=== PATIENT | female | born 1940 | race Caucasian/White ===

== ENCOUNTER 2017-07-13 07:51 | Day surgery (SDC) | payer OTHER, BC ==
--- OUTSIDE RECORDS SUMMARY | 2017-07-13 07:53 | XMS REPORT | Clinical Summary ---
:1940 Author Organization [facility] Address [address] [place] [address] Care Team Providers Name Role Phone Adam Gallegos MD Primary Care Provider Allergies No Known Allergies Current Medications Prescription Sig. Disp. Refills Start Date End Date Status liothyronine Take 5 mcg by Active (CYTOMEL) 5 MCG mouth tablet nightly. lisinopril-hydrochl Take 1 tablet 12/22/2015 Active orothiazide by mouth (MAURICE GEORGEOREIZABEL daily. C) 20-12.5 mg per tablet gabapentin Take 1 60 capsule 11 08/17/2016 08/17/2017 Active (NEURONTIN) 300 mg capsule (300 capsule mg total) by mouth 2 (two) times a day. acetaminophen-codei TAKE 1 TO 2 50 tablet 0 09/08/2016 10/08/2016 ne (TYLENOL WITH TABLETS BY CODEINE #3) 300-30 MOUTH EVERY 4 mg per tablet HOURS NEEDED FOR PAIN acetaminophen-codei TAKE 1 TO 2 50 tablet 0 12/28/2016 01/04/2017 Discontinued ne (TYLENOL WITH TABLETS EVERY CODEINE #3) 300-30 4 HOURS mg per tablet NEEDED FOR PAIN acetaminophen-codei TAKE 1 TO 2 100 tablet 0 01/04/2017 03/05/2017 ne (TYLENOL WITH TABLETS EVERY CODEINE #3) 300-30 4 HOURS mg per tablet NEEDED FOR PAIN Active Problems Problem Noted Date Lumbar stenosis with neurogenic claudication 02/09/2016 Lumbar spondylosis 01/06/2016 Diabetes mellitus Encounters Date Type Specialty Care Team Description 01/04/2017 Refill Neurosurgery Darren Wilson MD 12/27/2016 Refill Neurosurgery Darren Wilson MD 09/05/2016 Refill Neurosurgery Darren Wilson MD 08/17/2016 Hospital Encounter Radiology Darren Wilson MD 08/17/2016 Office Visit Neurosurgery Darren Wilson MD Status post lumbar spinal fusion (Primary Dx) 08/17/2016 Ancillary Orders Radiology Darren Wilson MD after 07/12/2016 Social History Tobacco Use Types Packs/Day Years Used Date Former Smoker 1 30 Quit: 2000 Alcohol Use Drinks/Week oz/Week Comments Yes 1 Glasses of wine 0.6 1/day Sex Assigned at Date Recorded Not on file Last Filed Vital Signs Not on file Plan of Treatment Health Maintenance Due Date Last Done Comments FOOT EXAM 1950 OPHTHALMOLOGY EXAM 1950 URINE MICROALBUMIN 1950 SHINGRIX VACCINE (#1) 1990 ZOSTER VACCINE 2000 PNEUMOCOCCAL POLYSACCHARIDE VACCINE AGE 65 AND OVER 2005 PNEUMOCOCCAL-13 2005 INFLUENZA VACCINE 10/05/2017 Implants Implanted Type Area Forming Machine Tender Device Expiration Model / Identifier Date Serial / Lot Maxcess Kit Accessories N/A: N/A 10/05/2017 [id number] / Implanted: Qty: 1 on 01/06/2016 by Darren Wilson MD / [id number] 15 Degree Cage Accessories N/A: N/A 01/06/2016 [id number] / Implanted: Qty: 1 on 01/06/2016 by Darren Wilson MD [id number] / [id number] Bone Matriz Osteocel Pro Medium - [id number] - [id number] Human Tissue N/A: N/ A NUVASIVE 06/15/2020 [id number] / Implanted: Qty: 1 on 01/06/2016 by Darren Wilson MD Implants [id number] / [id number] Bone Matriz Osteocel Pro Medium - [id number] - [id number] Human Tissue N/A: N/ A NUVASIVE 06/15/2020 [id number] / Implanted: Qty: 1 on 01/06/2016 by Darren Wilson MD Implants [id number] / [id number] Bone Matriz Osteocel Pro Medium - [id number] - [id number] Human Tissue N/A: N/ A NUVASIVE 06/01/2020 [id number] / Implanted: Qty: 1 on 01/06/2016 by Darren Wilson MD Implants [id number] / [id number] Brady [id number] 4.75 Ccm+ Strt Perc 100mm - [id number] IPM IMPLANT N/A: MEDTRONIC 03/07/2029 [id number] / Implanted: Qty: 2 on 01/06/2016 by Darren Wilson MD DEVICES Spine SOFAMOR DANEK / Lumbar [id number] Nvm5 Tmap Activator & Electrode Kit - [id number] IPM SUPPLIES N/A: N/A NUVASIVE SPINE 10/05/2016 / Implanted: Qty: 1 on 01/06/2016 by Darren Wilson MD PATIENT / NON-BILLABLE [id number] Screw Mas 4.75 Ext Tab Yovana 7.5 X 40 - [id number] Spinal N/A: MEDTRONIC [id number] / Implanted: Qty: 1 on 01/06/2016 by Darren Wilson MD Implants Spine SPINAL AND / Lumbar BIOLOGICS Screw Mas 4.75 Ext Tab Yovana 7.5 X 45 - [id number] Spinal N/A: MEDTRONIC [id number] / Implanted: Qty: 1 on 01/06/2016 by Darren Wilson MD Implants Spine SPINAL AND / Lumbar BIOLOGICS Kit Dil M5 Xlif - [id number] Spinal N/A: N/A NUVASIVE [id number] / Implanted: Qty: 1 on 01/06/2016 by Darren Wilson MD Implants / Implant Coroent Lordtc Xl 10deg 8mm 18mm 50mm - [id number] Spinal N/A: N/A NUVASIVE 01/06/2016 [id number] / Implanted: 01/06/2016 (Quantity not on file) Implants / [id number] Set Screw 4.75 Solera Perc Ti - [id number] Spinal N/A: MEDTRONIC [id number] / Implanted: Qty: 9 on 01/06/2016 by Darren Wilson MD Implants Spine SPINAL AND / Lumbar BIOLOGICS Screw Mas 4.75 Ext Tab Yovana 6.5 X 50 - [id number] Spinal N/A: MEDTRONIC [id number] / Implanted: Qty: 3 on 01/06/2016 by Darren Wilson MD Implants Spine SPINAL AND / Lumbar BIOLOGICS Screw Mas 4.75 Ext Tab Yovana 6.5 X 45 - [id number] Spinal N/A: MEDTRONIC [id number] / Implanted: Qty: 3 on 01/06/2016 by Darren Wilson MD Implants Spine SPINAL AND / Lumbar BIOLOGICS Results XR Spine External Study (08/04/2016 2:48 PM) Specimen Performing Laboratory [facility] [address] [place] [address] Narrative This exam was not acquired at a [facility] facility and has not been interpreted by a [facility] Provider.The exam was imported into our imaging system for comparisons purposes. after 07/12/2016 Insurance Payer Benefit Plan / Group Subscriber ID Type Phone Address MEDICARE MEDICARE PART A AND B xxxxxxxxxx Medicare [place], [place] BCBS BCBS PAR/TRAD PLAN xxxxxxxxxxxx Indemnity [phone] [place] [id number] KIRAN JADE Outside Other Home: [address] [facility] [phone] [address] [place] [address]
[2017-07-13] MEDS ORDERED: Ringers Lactate 1,000 ML IV ONE (08:14)
[2017-07-13] MEDS ORDERED: LIDOCAINE 1% MPF 5 ML VIAL ONE (09:34)
[2017-07-13] MEDS ORDERED: PROPOFOL 200 MG/20 ML VIAL IV ONE ×2 (09:34→10:40)
--- NOTE | 2017-07-13 10:20 | ENDO RPT ---
[address], [address] COLONOSCOPY PROCEDURE REPORT EXAM DATE: 07/13/2017 PATIENT NAME: Darlene Thornton MR #: [id number] BIRTHDATE: 1940 ATTENDING: Antoine Devlin DR STATUS: outpatient MACHINE ASSEMBLER SUPERVISOR: Sherly Mccloud RN and Emeka Vogt INDICATIONS: The patient is a 77 yr old Female here for a colonoscopy due to colon cancer screening PROCEDURE PERFORMED: Colonoscopy with ablation MEDICATIONS: Per Anesthesia. ESTIMATED BLOOD LOSS: None CONSENT: The patient understands the risks and benefits of the procedure and understands that these risks include, but are not limited to: sedation, allergic reaction, infection, perforation and/or bleeding. Alternative means of evaluation and treatment include, among others: physical exam, x-rays, and/or surgical intervention. The patient elects to proceed with this endoscopic procedure. DESCRIPTION OF PROCEDURE: During intra-op preparation period all mechanical medical equipment was checked for proper function. Hand hygiene and appropriate measures for infection prevention was taken. Procedure, possible complications, alternatives including, but not limited to possibility of bleeding, perforation, tear, infection, sepsis, need for surgery, need for blood transfusion, were explained to the patient. After the risks, benefits and alternatives of the procedure were thoroughly explained, Informed consent was verified, confirmed and timeout was successfully executed by the treatment team. The patient was placed in the left lateral position. A digital rectal exam was performed and revealed internal hemorrhoids, A digital rectal exam was performed and revealed external hemorrhoids, and A digital rectal exam was performed and revealed several skin tags. After appropriate level of anesthesia, the scope was passed. The [id number] ([id number]) endoscope was introduced through the anus and advanced to the cecum, which was identified by the ileocecal valve. The quality of the prep was fair. The instrument was then slowly withdrawn as the colon was fully examined. Scope withdrawal time was 13 minutes. 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 Argon plasma coagulation was applied to the sites. With complete hemostasis achieved with good treatment effect. Mild diverticulosis was noted in the right colon and sigmoid colon. No bleeding was noted from the diverticulosis. Retroflexed views revealed no abnormalities. The scope was then completely withdrawn from the patient and the procedure terminated. ADVERSE EVENTS: There were no complications. IMPRESSIONS: 1. 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 Mild diverticulosis was noted in the right colon and sigmoid colon RECOMMENDATIONS: 1. avoid NSAIDS for 2 weeks 2. low fiber / diverticular diet 3. hemorrhoidal hygiene 4. follow-up: office 2 week(s) RECALL: Return in 5 year(s) for Colonoscopy. Antoine Devlin DR eSigned: Antoine Devlin DR 07/13/2017 10:20 AM cc: CPT CODES: ICD9 CODES: PATIENT NAME: AlenataliiaDarlene MR#: [id number]
== END 2017-07-13 11:20 | disposition home or self-care (01) ==
LOC: OR 07:51
PROVIDERS: ATTEND Surgery
PROC: 0W3P8ZZ Control Bleeding in Gastrointestinal Tract, Via Natural or Artificial Opening Endoscopic (ICD-10-PCS; principal; 2017-07-13 09:15)
DX: Z12.11 Encounter for screening for malignant neoplasm of colon (principal); Q27.33 Arteriovenous malformation of digestive system vessel; K57.30 Diverticulosis of large intestine without perforation or abscess without bleeding; K64.8 Other hemorrhoids; E03.9 Hypothyroidism, unspecified; I10 Essential (primary) hypertension; Z82.49 Family history of ischemic heart disease and other diseases of the circulatory system

== ENCOUNTER 2018-03-03 15:40 | Emergency (ER) | payer OTHER, BC ==
--- OUTSIDE RECORDS SUMMARY | 2018-03-03 15:44 | XMS REPORT | Clinical Summary ---
:1940 Author Organization [facility] Address [address] [place] [address] Care Team Providers Name Role Phone Adam Gallegos MD Primary Care Provider Allergies No Known Allergies Medications Medication Sig Dispensed Refills Start Date End Date Status liothyronine Take 5 mcg by 0 Active (CYTOMEL) 5 MCG mouth nightly. tablet lisinopril-hydrochlor Take 1 tablet 0 12/22/2015 Active othiazide by mouth daily. (PRINZIDE,ZESTORETIC) 20-12.5 mg per tablet methocarbamol TK 1 T PO HS 0 09/02/2017 Active (ROBAXIN) 500 MG PRN tablet acetaminophen-codeine TAKE 1 TO 2 100 tablet 0 02/23/2018 03/25/2018 Active (TYLENOL WITH CODEINE TABLETS BY #3) 300-30 mg per MOUTH EVERY 4 tablet HOURS NEEDED gabapentin Take 1 capsule 60 capsule 11 08/17/2016 08/17/2017 (NEURONTIN) 300 mg (300 mg total) capsule by mouth 2 (two) times a day. acetaminophen-codeine TAKE 1 TO 2 100 tablet 0 01/04/2017 03/05/2017 (TYLENOL WITH CODEINE TABLETS EVERY 4 #3) 300-30 mg per HOURS NEEDED tablet FOR PAIN Active Problems Problem Noted Date Lumbar stenosis with neurogenic claudication 02/09/2016 Lumbar spondylosis 01/06/2016 Diabetes mellitus Encounters Date Type Specialty Care Team Description 02/21/2018 Refill Neurosurgery Darren Wilson MD 10/07/2017 Hospital Encounter Radiology Darren Wilson MD 10/07/2017 Hospital Encounter Radiology Darren Wilson MD 10/07/2017 Hospital Encounter Radiology Darren Wilson MD 10/07/2017 Office Visit Neurosurgery Darren Wilson, Status post lumbar spinal MD fusion (Primary Dx) 10/07/2017 Orders Only Neurosurgery Darren Wilson, Acquired spondylolisthesis (Primary Dx) after 03/02/2017 Social History Tobacco Use Types Packs/Day Years Used Date Former Smoker 04 05 Quit: 2000 Smokeless Tobacco: Never Used Alcohol Use Drinks/Week oz/Week Comments Yes 1 Glasses of wine 0.6 1/day Sex Assigned at Date Recorded Not on file Job Start Date Occupation Industry Not on file Not on file Not on file Travel History Travel Start Travel End No recent travel history available. Last Filed Vital Signs Not on file Plan of Treatment Health Maintenance Due Date Last Done Comments DIABETIC RETINAL EYE EXAM 1940 DIABETIC FOOT EXAM 1950 URINE MICROALBUMIN 1950 SHINGLES VACCINES (1 of 2) 1990 PNEUMOCOCCAL POLYSACCHARIDE VACCINE AGE 65 AND OVER 2005 PNEUMOCOCCAL-13 2005 INFLUENZA VACCINE 10/05/2017 Implants Implanted Type Area Superintendent Operations Division Device Shelf Model / Identifier Expiration Serial / Lot Date Maxcess Kit Accessories N/A: N/A 10/05/2017 [id number] / Implanted: Qty: 1 on 01/06/2016 by Darren Wilson MD / [id number] 15 Degree Cage Accessories N/A: N/A 01/06/2016 [id number] / Implanted: Qty: 1 on 01/06/2016 by Darren Wilson MD [id number] / [id number] Bone Matriz Osteocel Pro Medium - [id number] - [id number] Human Tissue N/A: N/ A NUVASIVE 06/15/2020 [id number] / Implanted: Qty: 1 on 01/06/2016 by Darren Wilson MD Implants [id number] / [id number] Bone Matriz Osteocel Pro Medium - [id number] - [id number] Human Tissue N/A: N/ A NUVASIVE 06/15/2020 [id number] / Implanted: Qty: 1 on 01/06/2016 by Darren Wilson MD Implants [id number] / [id number] Bone Matriz Osteocel Pro Medium - [id number] - [id number] Human Tissue N/A: N/ A NUVASIVE 06/01/2020 [id number] / Implanted: Qty: 1 on 01/06/2016 by Darren Wilson MD Implants [id number] / [id number] Brady [id number] 4.75 Ccm+ Strt Perc 100mm - [id number] IMPLANT N/A: MEDTRONIC 03/07/2029 [id number] / Implanted: Qty: 2 on 01/06/2016 by Darren Wilson MD DEVICES Spine SOFAMOR DANEK / Lumbar [id number] Nvm5 Tmap Activator & Electrode Kit - [id number] IPM SUPPLIES N/A: N/A NUVASIVE SPINE 10/05/2016 / Implanted: Qty: 1 on 01/06/2016 by Darren Wilson MD PATIENT / NON-BILLABLE [id number] Screw Mas 4.75 Ext Tab Yovana 7.5 X 40 - [id number] Spinal N/A: MEDTRONIC [id number] / Implanted: Qty: 1 on 01/06/2016 by Darren Wilson MD Implants Spine SPINAL AND / Lumbar BIOLOGICS Screw Mas 4.75 Ext Tab Yovana 7.5 X 45 - [id number] Spinal N/A: MEDTRONIC [id number] / Implanted: Qty: 1 on 01/06/2016 by Darren Wilson MD Implants Spine SPINAL AND / Lumbar BIOLOGICS Kit Dil M5 Xlif - [id number] Spinal N/A: N/A NUVASIVE / Implanted: Qty: 1 on 01/06/2016 by Darren Wilson MD Implants / Implant Coroent Lordtc Xl 10deg 8mm 18mm 50mm - [id number] Spinal N/A: N/A NUVASIVE 01/06/2016 [id number] / Implanted: 01/06/2016 (Quantity not on file) Implants / [id number] Set Screw 4.75 Solera Perc Ti - [id number] Spinal N/A: MEDTRONIC [id number] / Implanted: Qty: 9 on 01/06/2016 by Darren Wislon MD Implants Spine SPINAL AND / Lumbar BIOLOGICS Screw Mas 4.75 Ext Tab Yovana 6.5 X 50 - [id number] Spinal N/A: MEDTRONIC [id number] / Implanted: Qty: 3 on 01/06/2016 by Darren Wilson MD Implants Spine SPINAL AND / Lumbar BIOLOGICS Screw Mas 4.75 Ext Tab Yovana 6.5 X 45 - [id number] Spinal N/A: MEDTRONIC [id number] / Implanted: Qty: 3 on 01/06/2016 by Darren Wilson MD Implants Spine SPINAL AND / Lumbar BIOLOGICS Procedures Procedure Name Priority Date/Time Associated Diagnosis Comments XR LOWER EXTREMITY Routine 09/30/2017 11:15 AM Results for this EXTERNAL STUDY CDT procedure are in the results section. XR LOWER EXTREMITY Routine 09/30/2017 11:13 AM Results for this EXTERNAL STUDY CDT procedure are in the results section. XR SPINE EXTERNAL Routine 09/30/2017 11:08 AM Results for this STUDY CDT procedure are in the results section. after 03/02/2017 Results XR Lower Extremity External Study (09/30/2017 11:15 AM CDT)Only the most recent of2 resultswithin the time period is included. Narrative Performed At This exam was not acquired at a [facility] facility and has not been [facility] interpreted by a [facility] Provider.The exam was imported into our imaging system for comparisons purposes. Performing Organization Address [facility] Phone Number [facility] [address] [place] [address] XR Spine External Study (09/30/2017 11:08 AM CDT) Narrative Performed At This exam was not acquired at a [facility] facility and has not been [facility] interpreted by a [facility] Provider.The exam was imported into our imaging system for comparisons purposes. Performing Organization Address [facility] Phone Number [facility] [address] [place] [address] after 03/02/2017 Insurance Payer Benefit Plan / Group Subscriber ID Type Phone Address MEDICARE MEDICARE PART A AND B xxxxxxxxxx Medicare [place], [place] BCBS BCBS PAR/TRAD PLAN xxxxxxxxxxxx Indemnity KIRAN JADE Outside Other 03/07/1900 [phone] [facility] [address] (Home) [place] [address] Advance Directives Patient has advance care planning documents on file. For more information, please contact:Rolando Romano[address] [facility] [place] [address]
--- OUTSIDE RECORDS SUMMARY | 2018-03-03 15:44 | XMS REPORT ---
:1940 [facility] Address [address] [place] [address] Dr. Fishman [address] [place] [address] Care Team Providers Name Role Phone Unavailable Unavailable Unavailable Problems This patient has no known problems. Allergies, Adverse Reactions, Alerts This patient has no known allergies or adverse reactions. Medications This patient has no known medications.
[2018-03-03 18:23] LABS: Absolute Lymphocytes (CBC) 1.9 K/uL (0.7-4.9); Absolute Monocytes 1.5 K/uL (0.1-1.3); Absolute Neutrophil 5.3 K/uL (1.8-8.0); Basophils % 0.8 % (0-1.3); Eosinophils % 2.4 % (0-4.4); Hematocrit 37.8 % (36.0-45.0); Lymphocytes % 21.3 % (15.3-44.8); MPV 8.4 fL (7.6-11.3); Monocytes % 16.2 % (3.3-12.3); RBC Red Blood Cell Count 4.06 M/uL (3.86-4.86)
[2018-03-03 18:35] LABS: Urine Blood NEGATIVE (NEG); Urine Glucose NEGATIVE (NEG); Urine Protein NEGATIVE (NEG); Urine pH 6.5 (5.0-7.0)
--- NOTE | 2018-03-03 18:50 | RAD REPORT ---
EXAM DESCRIPTION: CT - Stone Protocol - 03/03/2018 6:18 pm CLINICAL HISTORY: Abdominal pain. Lower abdominal pain. Urinary frequency COMPARISON: None. TECHNIQUE: Computed axial tomography of the abdomen pelvis was obtained without oral or IV contrast. Lack of IV and oral contrast limits evaluation of solid organs, bowel, and vessels. Coronal reformat kellie images were obtained and reviewed. All CT scans are performed using dose optimization technique as appropriate and may include automated exposure control or mA/KV adjustment according to patient size. FINDINGS: A renal calculus is not seen. An ureteral calculus is not noted. A bladder calculus is not present. The liver, spleen, pancreas and adrenals appear grossly normal There is no evidence of diverticulitis. A cystocele seen. Mild to moderate arterial atherosclerosis Postsurgical changes involve the spine . Small umbilical hernia contains fat IMPRESSION: Negative for a genitourinary calculus
[2018-03-03 19:01] LABS: Blood Morphology Comment NOT SEEN (NOT SEEN); Platelet Estimate ADEQ; Urine White Blood Cell Casts OK
[2018-03-03] MEDS ORDERED: ONDANSETRON 4 MG/2 ML VIAL ONE (19:08)
[2018-03-03] MEDS ORDERED: NA CHLORIDE 0.9% 1,000 ML ONE (19:08)
[2018-03-03] MEDS ORDERED: KETOROLAC 30 MG/ML INJ ONE (19:08)
[2018-03-03 19:47] LABS: ALT/SGPT 39 U/L (12-78); AST/SGOT 20 U/L (15-37); Albumin 3.7 g/dL (3.4-5.0); Alkaline Phosphatase 114 U/L (45-117); BUN Blood Urea Nitrogen 18 mg/dL (7-18); Bicarbonate 30 mmol/L (21-32); Bilirubin Direct < 0.1 mg/dL (0-0.2); Bilirubin Total 0.3 mg/dL (0.2-1.0); Glucose Level 115 mg/dL (74-106); Lipase 235 U/L (73-393); Potassium 4.1 mmol/L (3.5-5.1); Protein, Total 7.1 g/dL (6.4-8.2); Sodium Level 136 mmol/L (136-145)
--- NOTE | 2018-03-03 20:18 | ER ---
Nurse's Notes [facility] Name: Darlene Thornton Age: 77 yrs Sex: Female : 1940 Arrival Date: 03/03/2018 Time: 15:46 Bed 14 Private MD: Adam Gallegos Diagnosis: Low back pain Presentation: 03/03 16:02 Presenting complaint: Patient states: Low back pain that started yesterday with chills. aj Transition of care: patient was not received from another setting of care. Onset of symptoms was March 02, 2018. Risk Assessment: Do you want to hurt yourself or someone else? Patient reports no desire to harm self or others. Initial Sepsis Screen: Does the patient meet any 2 criteria? No. Patient's initial sepsis screen is negative. Does the patient have a suspected source of infection? No. Patient's initial sepsis screen is negative. Care prior to arrival: None. 16:02 Method Of Arrival: Ambulatory aj 16:02 Acuity: AISHWARYA 3 aj Triage Assessment: 16:04 General: Appears in no apparent distress. comfortable, Behavior is calm, cooperative, aj appropriate for age. Pain: Complains of pain in low back area. Neuro: Level of Consciousness is awake, alert, obeys commands, Oriented to person, place, time, situation, Appropriate for age. Respiratory: Airway is patent Respiratory effort is even, unlabored, Respiratory pattern is regular, symmetrical. Derm: Skin is intact, is healthy with good turgor, Skin is pink, warm \\T\\ dry. normal. Musculoskeletal: Circulation, motion, and sensation intact. Range of motion: intact in all extremities. Historical: - Allergies: 16:04 No Known Allergies; aj - Home Meds: 16:04 Lisinopril Oral [Active]; "2 thyroid meds" [Active]; Tylenol #3 Oral [Active]; aj Amoxicillin Oral [Active]; - PMHx: 16:04 Hypertension; Hypothyroidism; aj - PSHx: 16:04 Hysterectomy; Appendectomy; bladder prolaspe; vericose veins; aj - Immunization history:: Adult Immunizations up to date. - Social history:: Smoking status: Patient/guardian denies using tobacco. - Ebola Screening: : Patient negative for fever greater than or equal to 101.5 degrees Fahrenheit, and additional compatible Ebola Virus Disease symptoms Patient denies exposure to infectious person Patient denies travel to an Ebola-affected area in the 21 days before illness onset No symptoms or risks identified at this time. - Family history:: not pertinent. Screenin:25 Abuse screen: Denies threats or abuse. Denies injuries from another. Nutritional ph screening: No deficits noted. Tuberculosis screening: No symptoms or risk factors identified. Fall Risk None identified. Assessment: 17:24 General: Appears in no apparent distress. comfortable, slender, well groomed, Behavior ph is calm, cooperative, appropriate for age, Reports chills for. Pain: Complains of pain in low back area Pain radiates to right hip. Neuro: Level of Consciousness is awake, alert, obeys commands, Oriented to person, place, time, situation. Cardiovascular: Capillary refill < 3 seconds in bilateral fingers Patient's skin is warm and dry. Respiratory: Airway is patent Respiratory effort is even, unlabored. GI: No signs and/or symptoms were reported involving the gastrointestinal system. : Reports pain in bilateral in lower back. Derm: Skin is intact, is healthy with good turgor, Skin is pink, warm \\T\\ dry. Musculoskeletal: Circulation, motion, and sensation intact. Range of motion: intact in all extremities. 18:53 Reassessment: Patient appears in no apparent distress at this time. Patient and/or ph family updated on plan of care and expected duration. Pain level reassessed. Patient is alert, oriented x 3, equal unlabored respirations, skin warm/dry/pink. Pt resting quietly, awaiting lab and CT results. 19:20 Reassessment: Patient appears in no apparent distress at this time. Patient and/or jb4 family updated on plan of care and expected duration. Pain level reassessed. Patient is alert, oriented x 3, equal unlabored respirations, skin warm/dry/pink. Cardiovascular: Patient's skin is warm and dry. Respiratory: Airway is patent Respiratory effort is even, unlabored, Respiratory pattern is regular, symmetrical. 20:32 Reassessment: Patient appears in no apparent distress at this time. Patient and/or jb4 family updated on plan of care and expected duration. Pain level reassessed. Patient is alert, oriented x 3, equal unlabored respirations, skin warm/dry/pink. Discussed D/c, F/u with pt, denies questions or cocnerns. Vital Signs: 16:04 BP 157 / 73; Pulse 76; Resp 20; Temp 98.3; Pulse Ox 100% on R/A; Weight 74.84 kg; aj Height 5 ft. 6 in. (167.64 cm); 17:45 BP 174 / 75; Pulse 68; Resp 18; Pulse Ox 98% on R/A; ph 18:53 BP 169 / 78; Pulse 71; Resp 18; Pulse Ox 99% on R/A; ph 19:31 BP 152 / 67; Pulse 69; Resp 16; Pulse Ox 100% on R/A; jb4 20:00 BP 154 / 67; Pulse 72; Resp 16; Pulse Ox 100% ; jb4 16:04 Body Mass Index 26.63 (74.84 kg, 167.64 cm) ED Course: 15:46 Patient arrived in ED. sb2 15:47 Adam Gallegos MD is Private Physician. sb2 16:03 Triage completed. 16:04 Arm band placed on right wrist. Patient placed in waiting room, Patient notified of wait time. 16:49 Esther Nunez, RN is Primary Nurse. ph 17:11 Angel Bustamante MD is Attending Physician. harley 17:25 Patient has correct armband on for positive identification. Bed in low position. Call ph light in reach. Side rails up X 1. 18:03 Radiology exam delayed due to IV insertion attempt and/or patient not having vm2 appropriate IV at this time. 18:08 Initial lab(s) drawn, by nj, sent to lab. Inserted saline lock: 18 gauge antecubital 5 area, using aseptic technique. Blood collected. 18:09 Urine collected: clean catch specimen, cloudy. 5 18:10 Basic Metabolic Panel Sent. 5 18:10 CBC with Diff Sent. 5 18:10 Creatinine for Radiology Sent. 5 18:10 Hepatic Function Sent. 5 18:10 Lipase Sent. 5 18:10 Urine Culture Sent. [facility] 18:18 CT completed. Patient tolerated procedure well. Patient moved to CT. Patient moved back nv from CT. 18:18 CT Stone Protocol In Process Unspecified. EDMS 18:54 No provider procedures requiring assistance completed. ph 19:37 Jarred Nath PA is PHCP. [facility] 20:17 Adam Gallegos MD is Referral Physician. [facility] 20:30 IV discontinued, intact, bleeding controlled. jb4 Administered Medications: 19:17 Drug: NS 0.9% 1000 ml Route: IV; Rate: 1 bolus; Site: right antecubital; ss 20:35 Follow up: Response: No adverse reaction; IV Status: Completed infusion jb4 19:18 Drug: Zofran 4 mg Route: IVP; Site: right antecubital; ss 20:34 Follow up: Response: No adverse reaction; Nausea is decreased jb4 19:20 Drug: TORadol 30 mg Route: IVP; Site: right antecubital; ss 20:34 Follow up: Response: No adverse reaction; Pain is decreased jb4 Outcome: 20:17 Discharge ordered by . [facility] 20:30 Discharged to home ambulatory. jb4 20:30 Condition: stable 20:30 Discharge instructions given to patient, Instructed on discharge instructions, follow up and referral plans. medication usage, Demonstrated understanding of instructions, follow-up care, medications, Prescriptions given X 2. 20:35 Patient left the ED. jb4 Signatures: Dispatcher [employer] EDMilvia Cuevas, RN Angel Pedersen MD MD cha Mickail, Joel, PA PA Tracy Villalta, Esther Mcneal RN, RN RN ph Bryson, James, RN RN jbLucien Flores Maria Lorena Romero 2 Nelly Muller2
--- NOTE | 2018-03-03 20:18 | EDPHYS ---
Physician Documentation [facility] Name: Darlene Thornton Age: 77 yrs Sex: Female : 1940 Arrival Date: 03/03/2018 Time: 15:46 Bed 14 Private MD: Adam Gallegos ED Physician Angel Bustamante HPI: 03/03 17:54 This 77 yrs old Female presents to ER via Ambulatory with complaints of Back harley Pain. 17:54 The patient presents with pain that is acute, with no known mechanism of injury. The harley symptoms are located in the low back, left mid back and right mid back. Onset: The symptoms/episode began/occurred 2 day(s) ago. The pain does not radiate. Associated signs and symptoms: The patient has no apparent associated signs or symptoms. The problem was sustained from unknown cause. Modifying factors: The patient symptoms are alleviated by nothing, the patient symptoms are aggravated by any movement. Severity of symptoms: At their worst the symptoms were mild, moderate, in the emergency department the symptoms are unchanged. The patient has not experienced similar symptoms in the past. Historical: - Allergies: 16:04 No Known Allergies; aj - Home Meds: 16:04 Lisinopril Oral [Active]; "2 thyroid meds" [Active]; Tylenol #3 Oral [Active]; aj Amoxicillin Oral [Active]; - PMHx: 16:04 Hypertension; Hypothyroidism; aj - PSHx: 16:04 Hysterectomy; Appendectomy; bladder prolaspe; vericose veins; aj - Immunization history:: Adult Immunizations up to date. - Social history:: Smoking status: Patient/guardian denies using tobacco. - Ebola Screening: : Patient negative for fever greater than or equal to 101.5 degrees Fahrenheit, and additional compatible Ebola Virus Disease symptoms Patient denies exposure to infectious person Patient denies travel to an Ebola-affected area in the 21 days before illness onset No symptoms or risks identified at this time. - Family history:: not pertinent. ROS: 17:54 Constitutional: Negative for fever, chills, and weight loss, Eyes: Negative for injury, harley pain, redness, and discharge, ENT: Negative for injury, pain, and discharge, Neck: Negative for injury, pain, and swelling, Cardiovascular: Negative for chest pain, palpitations, and edema, Respiratory: Negative for shortness of breath, cough, wheezing, and pleuritic chest pain, Abdomen/GI: Negative for abdominal pain, nausea, vomiting, diarrhea, and constipation, : Negative for injury, bleeding, discharge, and swelling, MS/Extremity: Negative for injury and deformity, Skin: Negative for injury, rash, and discoloration, Neuro: Negative for headache, weakness, numbness, tingling, and seizure, Psych: Negative for depression, anxiety, suicide ideation, homicidal ideation, and hallucinations, Allergy/Immunology: Negative for hives, rash, and allergies, Endocrine: Negative for neck swelling, polydipsia, polyuria, polyphagia, and marked weight changes, Hematologic/Lymphatic: Negative for swollen nodes, abnormal bleeding, and unusual bruising. 17:54 Back: Positive for decreased range of motion, pain at rest, of the lumbar area. Exam: 17:54 Constitutional: This is a well developed, well nourished patient who is awake, alert, harley and in no acute distress. Head/Face: Normocephalic, atraumatic. Eyes: Pupils equal round and reactive to light, extra-ocular motions intact. Lids and lashes normal. Conjunctiva and sclera are non-icteric and not injected. Cornea within normal limits. Periorbital areas with no swelling, redness, or edema. ENT: Nares patent. No nasal discharge, no septal abnormalities noted. Tympanic membranes are normal and external auditory canals are clear. Oropharynx with no redness, swelling, or masses, exudates, or evidence of obstruction, uvula midline. Mucous membranes moist. Neck: Trachea midline, no thyromegaly or masses palpated, and no cervical lymphadenopathy. Supple, full range of motion without nuchal rigidity, or vertebral point tenderness. No Meningismus. Chest/axilla: Normal chest wall appearance and motion. Nontender with no deformity. No lesions are appreciated. Cardiovascular: Regular rate and rhythm with a normal S1 and S2. No gallops, murmurs, or rubs. Normal PMI, no JVD. No pulse deficits. Respiratory: Lungs have equal breath sounds bilaterally, clear to auscultation and percussion. No rales, rhonchi or wheezes noted. No increased work of breathing, no retractions or nasal flaring. Abdomen/GI: Soft, non-tender, with normal bowel sounds. No distension or tympany. No guarding or rebound. No evidence of tenderness throughout. Female : Normal external genitalia. Skin: Warm, dry with normal turgor. Normal color with no rashes, no lesions, and no evidence of cellulitis. MS/ Extremity: Pulses equal, no cyanosis. Neurovascular intact. Full, normal range of motion. Neuro: Awake and alert, GCS 15, oriented to person, place, time, and situation. Cranial nerves II-XII grossly intact. Motor strength 5/5 in all extremities. Sensory grossly intact. Cerebellar exam normal. Normal gait. Psych: Awake, alert, with orientation to person, place and time. Behavior, mood, and affect are within normal limits. 17:54 Back: pain, that is mild, ROM is painful, normal spinal alignment noted, CVA tenderness, that is mild, vertebral tenderness, is not appreciated, muscle spasm, is appreciated in the left low back, left mid back, right mid back and right low back. Vital Signs: 16:04 BP 157 / 73; Pulse 76; Resp 20; Temp 98.3; Pulse Ox 100% on R/A; Weight 74.84 kg; aj Height 5 ft. 6 in. (167.64 cm); 17:45 BP 174 / 75; Pulse 68; Resp 18; Pulse Ox 98% on R/A; ph 18:53 BP 169 / 78; Pulse 71; Resp 18; Pulse Ox 99% on R/A; ph 19:31 BP 152 / 67; Pulse 69; Resp 16; Pulse Ox 100% on R/A; jb4 20:00 BP 154 / 67; Pulse 72; Resp 16; Pulse Ox 100% ; jb4 16:04 Body Mass Index 26.63 (74.84 kg, 167.64 cm) MDM: 17:12 Patient medically screened. [facility] 17:57 Data reviewed: vital signs, nurses notes, lab test result(s), EKG, radiologic studies, [facility] CT scan. 20:17 Counseling: I had a detailed discussion with the patient and/or guardian regarding: the [facility] historical points, exam findings, and any diagnostic results supporting the discharge/admit diagnosis, lab results, radiology results, the need for outpatient follow up, to return to the emergency department if symptoms worsen or persist or if there are any questions or concerns that arise at home. 03/03 17:52 Order name: Basic Metabolic Panel; Complete Time: 19:49 [facility] 03/03 17:52 Order name: CBC with Diff; Complete Time: 19:05 [facility] 03/03 17:52 Order name: Creatinine for Radiology; Complete Time: 19:45 [facility] 03/03 17:52 Order name: Hepatic Function; Complete Time: 19:49 [facility] 03/03 17:52 Order name: Lipase; Complete Time: 19:49 [facility] 03/03 17:52 Order name: Urine Culture [facility] 03/03 17:52 Order name: IV Saline Lock; Complete Time: 18:10 [facility] 03/03 17:52 Order name: Labs collected and sent; Complete Time: 18:10 [facility] 03/03 17:52 Order name: CT Stone Protocol; Complete Time: 19:05 [facility] 03/03 18:26 Order name: Urine Dipstick--Ancillary (enter results); Complete Time: 18:38 eb 03/03 18:33 Order name: CBC Smear Scan; Complete Time: 19:05 [facility] 03/03 17:52 Order name: Urine Dipstick-Ancillary (obtain specimen); Complete Time: 18:10 [facility] 03/03 18:35 Order name: Labs - recollect needed; Complete Time: 19:20 eb Administered Medications: 19:17 Drug: NS 0.9% 1000 ml Route: IV; Rate: 1 bolus; Site: right antecubital; ss 20:35 Follow up: Response: No adverse reaction; IV Status: Completed infusion jb4 19:18 Drug: Zofran 4 mg Route: IVP; Site: right antecubital; ss 20:34 Follow up: Response: No adverse reaction; Nausea is decreased jb4 19:20 Drug: TORadol 30 mg Route: IVP; Site: right antecubital; ss 20:34 Follow up: Response: No adverse reaction; Pain is decreased jb4 Disposition: 03/03/18 20:17 Discharged to Home. Impression: Low back pain. - Condition is Stable. - Discharge Instructions: Back Pain, Adult, Musculoskeletal Pain. - Prescriptions for Motrin IB 200 mg Oral Tablet - take 2 tablet by ORAL route every 6 hours As needed as needed with food; 30 tablet. Tramadol 50 mg Oral Tablet - take 1 tablet by ORAL route every 8 hours as needed; 20 tablet. - Medication Reconciliation Form, Thank You Letter, Antibiotic Education, Prescription Opioid Use form. - Follow up: Adam Gallegos; When: 2 - 3 days; Reason: Recheck today's complaints, Continuance of care, Re-evaluation by your physician. - Problem is new. - Symptoms have improved. Addendum: 03/07/2018 11:06 Co-signature as Attending Physician, Angel Bustamante MD I agree with the assessment and c carranza plan of care. Signatures: Dispatcher [employer] EDMilvia Cuevas, RN Angel Pedersen MD MD cha Mickail, Joel, PA PA jmm Smirch, Shelby, RN RN ss Good Diaz RN RN jb4 [place]at [facility]ons Corrections: (The following items were deleted from the chart) 03/03 20:35 20:17 03/03/2018 20:17 Discharged to Home. Impression: Low back pain. Condition is jb4 Stable. Discharge Instructions: Back Pain, Adult, Musculoskeletal Pain. Prescriptions for Tylenol-Codeine #3 300-30 mg Oral Tablet - take 2 tablets by ORAL route every 6 hours As needed; 26 tablet, Motrin IB 200 mg Oral Tablet - take 2 tablet by ORAL route every 6 hours As needed as needed with food; 30 tablet. and Forms are Medication Reconciliation Form, Thank You Letter, Antibiotic Education, Prescription Opioid Use. Follow up: Adam Gallegos; When: 2 - 3 days; Reason: Recheck today's complaints, Continuance of care, Re-evaluation by your physician. Problem is new. Symptoms have improved. [facility]
== END 2018-03-03 20:35 | disposition home or self-care (01) ==
LOC: ER 15:40
DX: M54.5 Low back pain (principal); I10 Essential (primary) hypertension; E03.9 Hypothyroidism, unspecified
CPT/HCPCS: 36415; 74176; 76377; 80048; 80076; 81003; 83690; 85025; 87086; 87088; 96361; 96374; 96375; 99284; J2405; J7030

== ENCOUNTER 2021-02-23 11:44 | Emergency (ER) | payer OTHER, BC ==
--- OUTSIDE RECORDS SUMMARY | 2021-02-23 11:48 | XMS REPORT | Continuity of Care Document ---
:1940 Author Organization [facility] t Address [address] [place] [address] [address]. Fish[address] [place] [address] Care Team Providers Name Role Phone OMERO Attending Clinician Unavailable Casie Bolivar Attending Clinician Casie BALBUENA Attending Clinician Unavailable Kimberly Anglin MD Attending Clinician Radiology Attending Clinician Unavailable RADIOLOGY Attending Clinician Unavailable Kimberly ANGLIN Attending Clinician Unavailable Payers Payer Name Policy Type Policy Number Effective Date Expiration Date S ource Problems Condition Condition Condition Status Onset Resolution Last Treating Co mments Source Name Details Category Date Date Treatment Clinician Date No known No known Disease Unive rs active active ity of problems problems [facility] Allergies, Adverse Reactions, Alerts Allergy Allergy Status Severity Reaction(s) Onset Inactive Treating Comm ents Source Name Type Date Date Clinician NO KNOWN Drug Active Univers ALLERGIE Class ity of S [facility] Social History Social Habit Start Date Stop Date Quantity Comments Source Exposure to Not sure [facility] SARS-CoV-2 (event) Medica l Branch Tobacco use and 2020-05-20 2020-05-20 Never used [facility] exposure 00:00:00 00:00:00 [facility] Sex Ass[birth year] [facility] 00:00:00 00:00:00 [facility] Smoking Status Start Date Stop Date Source Never smoker [facility] Medications Ordered Filled Start Stop Current Ordering Indication Dosage Frequency Signature Comments Components Source Medication Medication Date Date Medication? Clinician (SIG) Name Name triamcinolo 2019-03 2020- No 40mg Unive rs ne 04-09 ity of acetonide 23:30: 22:24 [place] (KENALOG) 00 :00 Medical injection Branch 40 mg triamcinolo 2019-03 2020- No 40mg 40 mg, Uni vers ne 04-09 Intra-jaspreet ity of acetonide 23:30: 22:24 [place] ([place]LOG) 00 :00 ONCE, 1 Medical injection dose, Prema Branc h 40 mg 02/07/20 at 1730, Routine triamcinolo 2019-03- No 40mg Unive rs ne 04-09 ity of acetonide 23:30: 22:24 [place] (KENALOG) 00 :00 Medical injection Branch 40 mg triamcinolo 2019-03- No 40mg 40 mg, Uni vers ne 04-09 Intra-jaspreet ity of acetonide 23:30: 22:24 [place], [place] (KENALOG) 00 :00 ONCE, 1 Medical injection dose, Prema Branc h 40 mg 02/07/20 at 1730, Routine lisinopriL 2019-03 Yes 20mg Take 20 mg U nivers 20 mg 2-03 by mouth ity of tablet 22:16: daily. [address] Branch lisinopriL 2019-03 Yes 20mg Take 20 mg U nivers 20 mg 2-03 by mouth ity of tablet 22:16: daily. [address] Branch lisinopriL 2019-03 Yes 20mg Take 20 mg U nivers 20 mg 2-03 by mouth ity of tablet 22:16: daily. [address] Branch lisinopriL 2019-03 Yes 20mg Take 20 mg U nivers 20 mg 2-03 by mouth ity of tablet 22:16: daily. [address] Branch lisinopriL 2019- Yes 20mg Take 20 mg U nivers 20 mg 2-03 by mouth ity of tablet 22:16: daily. [address] lisinopriL 2019-03 Yes 20mg Take 20 mg U nivers 20 mg 2-03 by mouth ity of tablet 22:16: daily. [address] lisinopriL 2019-03 Yes 20mg Take 20 mg U nivers 20 mg 2-03 by mouth ity of tablet 22:16: daily. [address] Branch traMADOL 50 2019-0 Yes [id number] 50mg Take 1 Univers mg tablet 4-02 tablet by ity o f 00:00: mouth [place] [address] every 4 Medical (four) Branch hours as needed for Pain (scale 7-10). traMADOL 50 2019-0 Yes [id number] 50mg Take 1 Univers mg tablet 4-02 tablet by ity o f 00:00: mouth [place] 00 every 4 Medical (four) Branch hours as needed for Pain (scale 7-10). traMADOL 50 2019-0 Yes [id number] 50mg Take 1 Univers mg tablet 4-02 tablet by ity o f 00:00: mouth [place] 00 every 4 Medical (four) Branch hours as needed for Pain (scale 7-10). traMADOL 50 2019-0 Yes [id number] 50mg Take 1 Univers mg tablet 4-02 tablet by ity o f 00:00: mouth [place] 00 every 4 Medical (four) Branch hours as needed for Pain (scale 7-10). traMADOL 50 2019-0 Yes [id number] 50mg Take 1 Univers mg tablet 4-02 tablet by ity o f 00:00: mouth [place] 00 every 4 Medical (four) Branch hours as needed for Pain (scale 7-10). traMADOL 50 2018-0 Yes [id number] 50mg Take 1 Univers mg tablet 4-02 tablet by ity o f 00:00: mouth [place] 00 every 4 Medical (four) Branch hours as needed for Pain (scale 7-10). traMADOL 50 2018-0 Yes [id number] 50mg Take 1 Univers mg tablet 4-02 tablet by ity o f 00:00: mouth [place] 00 every 4 Medical (four) Branch hours as needed for Pain (scale 7-10). traMADOL 50 2019-0 Yes [id number] 50mg Take 1 Univers mg tablet 4-02 tablet by ity o f 00:00: mouth [place] 00 every 4 Medical (four) Branch hours as needed for Pain (scale 7-10). DICLOFENAC 2019-0 Yes [id number] TAKE 1 Univers 75 mg EC 2- [id number] TABLET BY ity o f tablet 00:00: MOUTH [place] 00 TWICE Medical DAILY WITH Branch MEALS DICLOFENAC 2019-0 Yes [id number] TAKE 1 Univers 75 mg EC 2-01 [id number] TABLET BY ity o f tablet 00:00: MOUTH [place] 00 TWICE Medical DAILY WITH Branch MEALS DICLOFENAC 2019-0 Yes [id number] TAKE 1 Univers 75 mg EC 2-01 [id number] TABLET BY ity o f tablet 00:00: MOUTH [place] 00 TWICE Medical DAILY WITH Branch MEALS DICLOFENAC 2019-0 Yes [id number] TAKE 1 Univers 75 mg EC 2- [id number] TABLET BY ity o f tablet 00:00: MOUTH 00 TWICE Medical DAILY WITH Branch MEALS DICLOFENAC 2019-0 Yes [id number] TAKE 1 Univers 75 mg EC 04-07 TABLET BY ity o f tablet 00:00: MOUTH TWICE Medical DAILY WITH Branch MEALS DICLOFENAC 2019-0 Yes [id number] TAKE 1 Univers 75 mg EC 04-07 TABLET BY ity o f tablet 00:00: MOUTH TWICE Medical DAILY WITH Branch MEALS DICLOFENAC 2019-0 Yes [id number] TAKE 1 Univers 75 mg EC 04-07 TABLET BY ity o f tablet 00:00: MOUTH 00 TWICE Medical DAILY WITH Branch MEALS DICLOFENAC 2019-0 Yes [id number] TAKE 1 Univers 75 mg EC 04-07 TABLET BY ity o f tablet 00:00: MOUTH 00 TWICE Medical DAILY WITH Branch MEALS traMADOL 50 2019-0 Yes TK 1 T PO U nivers mg tablet 1-23 Q 6 H PRN ity o f 00:00: P [place] [facility] traMADOL 50 2019-0 Yes TK 1 T PO U nivers mg tablet 1-23 Q 6 H PRN ity o f 00:00: P [place] [facility] traMADOL 50 2019-0 Yes TK 1 T PO U nivers mg tablet 1-23 Q 6 H PRN ity o f 00:00: P [place] [facility] traMADOL 50 2019-0 Yes TK 1 T PO U nivers mg tablet 1-23 Q 6 H PRN ity o f 00:00: P [place] [facility] traMADOL 50 2019-0 Yes TK 1 T PO U nivers mg tablet 1-23 Q 6 H PRN ity o f 00:00: P [place] [facility] traMADOL 50 2019-0 Yes TK 1 T PO U nivers mg tablet 1-23 Q 6 H PRN ity o f 00:00: P [place] [facility] traMADOL 50 2019-0 Yes TK 1 T PO U nivers mg tablet 1-23 Q 6 H PRN ity o f 00:00: P [place] [facility] traMADOL 50 2019-0 Yes TK 1 T PO U nivers mg tablet 1-23 Q 6 H PRN ity o f 00:00: P [place] [facility] amLODIPine 2019-0 Yes TK 1 T PO Un nimo 5 mg tablet -02 QD ity of 00:00: [place] [facility] amLODIPine 20190 Yes TK 1 T PO Un nimo 5 mg tablet 03-08 QD ity of 00:00: [place] [facility] amLODIPine 2019 Yes TK 1 T PO Un nimo 5 mg tablet 03-08 QD ity of 00:00: [place] [facility] amLODIPine 2019 Yes TK 1 T PO Un nimo 5 mg tablet 03-08 QD ity of 00:00: [place] [facility] amLODIPine 2019 Yes TK 1 T PO Un nimo 5 mg tablet 03-08 QD ity of 00:00: [place] [facility] amLODIPine Yes TK 1 T PO Un nimo 5 mg tablet 03-08 QD ity of 00:00: [place] [facility] amLODIPine 2019 Yes TK 1 T PO Un nimo 5 mg tablet 03-08 QD ity of 00:00: [place] [facility] amLODIPine Yes TK 1 T PO Un nimo 5 mg tablet 03-08 QD ity of 00:00: [place] [facility] liothyronin 2017-03 Yes 5ug Take 5 mcg Univers e 5 mcg 1-30 by mouth. ity of tablet 16:18: [address] liothyronin 2017-03 Yes 5ug Take 5 mcg Univers e 5 mcg 1-30 by mouth. ity of tablet 16:18: [address] liothyronin 2017-03 Yes 5ug Take 5 mcg Univers e 5 mcg 1-30 by mouth. ity of tablet 16:18: [address] liothyronin 2017-03 Yes 5ug Take 5 mcg Univers e 5 mcg 1-30 by mouth. ity of tablet 16:18: [address] liothyronin 2017-03 Yes 5ug Take 5 mcg Univers e 5 mcg 1-30 by mouth. ity of tablet 16:18: [address] liothyronin 2017-03 Yes 5ug Take 5 mcg Univers e 5 mcg 1-30 by mouth. ity of tablet 16:18: [address] liothyronin 2017-03 Yes 5ug Take 5 mcg Univers e 5 mcg 1-30 by mouth. ity of tablet 16:18: [address] liothyronin 2017-03 Yes 5ug Take 5 mcg Univers e 5 mcg 1-30 by mouth. ity of tablet 16:18: [place] [address] [facility] methocarbam 0 Yes TK 1 T PO U nivers ol 500 mg 6-29 HS PRN ity of tablet 00:00: [place] [facility] Branch methocarbam Yes TK 1 T PO U nivers ol 500 mg 6-29 HS PRN ity of tablet 00:00: [place] [facility] methocarbam Yes TK 1 T PO U nivers ol 500 mg 6-29 HS PRN ity of tablet 00:00: [place] [facility] Branch methocarbam Yes TK 1 T PO U nivers ol 500 mg 6-29 HS PRN ity of tablet 00:00: [place] [facility] methocarbam Yes TK 1 T PO U nivers ol 500 mg 6-29 HS PRN ity of tablet 00:00: [place] [facility] methocarbam Yes TK 1 T PO U nivers ol 500 mg 6-29 HS PRN ity of tablet 00:00: [place] [facility] methocarbam Yes TK 1 T PO U nivers ol 500 mg 6-29 HS PRN ity of tablet 00:00: [place] [facility] methocarbam Yes TK 1 T PO U nivers ol 500 mg 6-29 HS PRN ity of tablet 00:00: [place] [facility] lisinopril- 2015-03 Yes 1{tbl} Take 1 Un nimo hydrochloro 0-17 tablet by ity of thiazide 00:00: mouth. [place] 20-12.5 mg 00 Medical per tablet Branch lisinopril- 2015-03 Yes 1{tbl} Take 1 Un nimo hydrochloro 0-17 tablet by ity of thiazide 00:00: mouth. [place] 20-12.5 mg 00 Medical per tablet Branch lisinopril- 2015-03 Yes 1{tbl} Take 1 Un nimo hydrochloro 0-17 tablet by ity of thiazide 00:00: mouth. [place] 20-12.5 mg 00 Medical per tablet Branch lisinopril- 2015-03 Yes 1{tbl} Take 1 Un nimo hydrochloro 0-17 tablet by ity of thiazide 00:00: mouth. [place] 20-12.5 mg 00 Medical per tablet Branch lisinopril2015-03 Yes 1{tbl} Take 1 Un nimo hydrochloro 0-17 tablet by ity of thiazide 00:00: mouth. [place] 20-12.5 mg 00 Medical per tablet Branch lisinopril- 2015-03 Yes 1{tbl} Take 1 Un nimo hydrochloro 0-17 tablet by ity of thiazide 00:00: mouth. [place] 20-12.5 mg 00 Medical per tablet Branch lisinopril- 2015-03 Yes 1{tbl} Take 1 Un nimo hydrochloro 0-17 tablet by ity of thiazide 00:00: mouth. [place] 20-12.5 mg 00 Medical per tablet Branch lisinopril- 2015-03 Yes 1{tbl} Take 1 Un nimo hydrochloro 0-17 tablet by ity of thiazide 00:00: mouth. [place] 20-12.5 mg 00 Medical per tablet Branch Vital Signs Vital Name Observation Time Observation Value Comments Source Diastolic blood 2020-05-20 18:53:00 66 mm[Hg] Unive [facility] Heart rate 2020-05-20 18:53:00 65 /min [facility] Systolic blood 2020-05-20 18:53:00 160 mm[Hg] [facility] Body height 2020-05-20 18:49:00 167.6 cm [facility] Body weight 2020-05-20 18:49:00 71.668 kg [facility] BMI 2020-05-20 18:49:00 25.50 kg/m2 [facility] Systolic blood 2020-02-07 22:16:00 152 mm[Hg] [facility] Diastolic blood 2020-02-07 22:16:00 62 mm[Hg] Unive [facility] Heart rate 2020-02-07 22:16:00 76 /min [facility] Body weight 2020-02-07 22:15:00 73.936 kg [facility] BMI 2020-02-07 22:15:00 26.31 kg/m2 [facility] Procedures Procedure Date / Time Performed Performing Clinician Sourc e XR LUMBAR SPINE 5 VW 2020-03-14 20:09:45 [facility] Encounters Start End Encounter Admission Attending Care Care Encounter Source Date/Time Date/Time Type Type Clinicians Facility Department ID 2020-07-18 2020-07-18 Outpatient HAL JAMIL [facility] [id number] [place] 00:00:00 00:00:[address] 2020-06-27 2020-06-27 Outpatient HAL JAMIL [facility] [id number] [place] 00:00:00 00:00:00 084 [facility] i 2020-06-10 2020-06-10 Outpatient HAL JAMIL [facility] [id number] [place] 00:00:00 00:00:[address] 2020-05-20 2020-05-20 Office [place] [facility] [id number] Univers 13:46:27 14:23:02 Visit Adrian [facility] [id number] it y of Surgical [id number] Art[place] as Specialti [phone] Me dical es [address] [place] [address] 2020-05-20 2020-05-20 [facility] [id number] Univers 14:00:00 14:00:00 [facility] [id number] [facility] 2020-05-20 2020-05-20 [facility] [id number] Univers 14:00:00 14:00:00 [facility] 2020-05-13 2020-05-13 Outpatient HAL JAMIL [facility] [id number] [place] 00:00:00 00:00:00 403 Method i 2020-05-13 2020-05-13 Outpatient HAL JAMIL [facility] [id number] [place] 00:00:00 00:00:00 492 [facility] i 2020-05-08 2020-05-08 [facility] [id number] Univers 00:00:00 00:00:00 Adrian [place] [id number] i [place] [phone] Me dical [address] 2020-05-07 2020-05-07 Telephone [facility] [id number] Univers 00:00:00 00:00:00 Polly Harris [facility] [id number] it y of Surgical [id number] [place] Specialti [id number] [place] dical [place] 198 [facility] 2020-03-14 2020-03-14 Hospital Radiology [facility] [id number] Univers 13:49:00 23:59:00 Encounter [place] [id number] ity of [place] 4.2.7.2.686 [id number] 807 Branch 2020-03-14 2020-03-14 Outpatient R RADIOLOGY [facility] [id number] Univers 14:00:00 14:00:00 [id number] ity [facility] 2020-03-14 2020-03-14 Outpatient R RADIOLOGY [facility] [id number] Univers 00:00:00 00:00:00 ity [facility] 2020-02-07 2020-02-07 Office Adrian Balbuena [facility] [id number] Univers 16:00:03 16:27:51 Visit Polly Anglin [facility] [id number] ity of Surgical [id number] Artur as Specialti [phone] [place] dicfranklin es 198 [facility] 2020-02-07 2020-02-07 [facility] [id number] Univers 16:15:00 16:15:00 POLLY ity [facility] 2020-02-07 2020-02-07 [facility] [id number] Univers 16:15:00 16:15:[address] [facility] 2019-03-31 2019-03-31 Refill [place] [facility] [id number] Univers 00:00:00 [facility]00[facility] [id number] it y of Surgical [id number] Artur as Specialti [id number] [place] dical es 198 [facility] Results Test Description Test Test Results Result Source Time Comments Comments XR LUMBAR SPINE 2020-03- Impression: 1. Unive rsity of 5 VW 08 ?[place] [facility] 20:56:17 in the lumbar spine. Bran ch Advanced degenerativechanges at L1-2 and L5-S1.Exam: XR LUMBAR SPINE 5 VW Clinical History: Acute right-sided low back pain with sciatica, sciaticalaterality unspecified Technique:5 views Comparison: None Findings: Lumbar spine alignment is normal. Decreased disc height withadvanced endplate degeneration noted at L1-L2 level. Transpedicular screwfixation with vertical interconnecting rods noted between L2 and L4 withinterbody bone grafts. L5-S1 advanced degenerative changes noted withvacuum phenomenon. Sacroiliac joints are normal. Atherosclerotic plaquing noted in the abdominal aorta. [facility] Results Inft User - 03/14/2020 2:57 PM CSTExam: XR LUMBAR SPINE 5 VWClinical History: Acute right-sided low back pain with sciatica, sciaticalaterality unspecified Technique:5 viewsComparison: NoneFindings: Lumbar spine alignment is normal. Decreased disc height withadvanced endplate degeneration noted at L1-L2 level. Transpedicular screwfixation with vertical interconnecting rods noted between L2 and L4 withinterbody bone grafts. L5-S1 advanced degenerative changes noted withvacuum phenomenon. Sacroiliac joints are normal.Atherosclerotic plaquing noted in the abdominal aorta.IMPRESSIONImpress ion:1. Postoperative changes in the lumbar spine. Advanced degenerativechanges at L1-2 and L5-S1.
--- NOTE | 2021-02-23 12:52 | RAD REPORT ---
EXAM DESCRIPTION: CT - Head Brain Wo Cont - 02/23/2021 12:39 pm CLINICAL HISTORY: TRAUMA COMPARISON: No comparisons TECHNIQUE: All CT scans are performed using dose optimization technique as appropriate and may inclu de automated exposure control or mA/KV adjustment according to patient size. FINDINGS: Left forehead contusion. Small subdural hematoma measuring under 3 millimeters in maximal thickness.Moderate chronic small vessel ischemic changes.No areas of brain edema or evidence of midli ne shift. Partially imaged mucosal thickening in the right maxillary sinus. No mastoid effusion. The calvarium is intact. IMPRESSION: Small acute subdural hematoma along the left frontal lobe measuring under 3 millimeters in maximal thickness. No skull fracture identified. Discussed with Julio Jon in the ED at 1248 on 02/23/21
[2021-02-23 13:14] LABS: Absolute Lymphocytes (CBC) 1.8 K/uL (0.7-4.9); Basophils % 0.5 % (0-1.3); Lymphocytes % 14.8 % (15.3-44.8); MPV 7.5 fL (7.6-11.3); RBC Red Blood Cell Count 4.07 M/uL (3.86-4.86)
[2021-02-23 13:27] LABS: Protime INR 1.16
[2021-02-23 13:32] LABS: Potassium 4.1 mmol/L (3.5-5.1)
--- NOTE | 2021-02-23 13:55 | EDPHYS ---
Physician Documentation [facility] Name: Darlene Thornton Age: 80 yrs Sex: Female : 1940 Arrival Date: 02/23/2021 Time: 11:47 Bed 20 Private MD: ED Physician Angel Bustamante HPI: 02/23 12:23 This 80 yrs old Female presents to ER via Ambulatory with complaints of Fall Injury. jr8 12:23 This is a 80-year-old female that presented to the emergency room after sustaining an jr8 accidental fall this morning. Patient stated that her family members dog got out and she fell trying to catch him. Hit her head, left hand, right knee. Denies any loss of consciousness. Patient currently on Xarelto.. Historical: - Allergies: 12:10 No Known Drug Allergies; eo2 - Home Meds: 12:10 Xarelto oral [Active]; eo2 15:24 Ampyra 10 mg oral Tb12 [Active]; amlodipine 10 mg tab [Active]; lyothyronine [Active]; jl7 carvedilol 25 mg oral tab [Active]; - PMHx: 12:10 Hypertension; Hypothyroidism; eo2 15:24 Atrial fibrillation; jl7 - Immunization history:: Client reports receiving the 2nd dose of the Covid vaccine. - Immunization history: Last tetanus immunization: unknown. - Social history:: Smoking status: unknown. ROS: 12:23 Eyes: Negative for injury, pain, redness, and discharge, ENT: Negative for injury, jr8 pain, and discharge, Neck: Negative for injury, pain, and swelling, Cardiovascular: Negative for chest pain, palpitations, and edema, Respiratory: Negative for shortness of breath, cough, wheezing, and pleuritic chest pain, Abdomen/GI: Negative for abdominal pain, nausea, vomiting, diarrhea, and constipation, Back: Negative for injury and pain, MS/Extremity: Negative for injury and deformity. 12:23 Neuro: Negative for headache, weakness, numbness, tingling, and seizure. 12:23 Skin: Positive for abrasion(s), hematoma. Exam: 12:23 Eyes: Pupils equal round and reactive to light, extra-ocular motions intact. Lids and jr8 lashes normal. Conjunctiva and sclera are non-icteric and not injected. Cornea within normal limits. Periorbital areas with no swelling, redness, or edema. ENT: Nares patent. No nasal discharge, no septal abnormalities noted. Tympanic membranes are normal and external auditory canals are clear. Oropharynx with no redness, swelling, or masses, exudates, or evidence of obstruction, uvula midline. Mucous membranes moist. Neck: Trachea midline, no thyromegaly or masses palpated, and no cervical lymphadenopathy. Supple, full range of motion without nuchal rigidity, or vertebral point tenderness. No Meningismus. Chest/axilla: Normal chest wall appearance and motion. Nontender with no deformity. No lesions are appreciated. Cardiovascular: Regular rate and rhythm with a normal S1 and S2. No gallops, murmurs, or rubs. Normal PMI, no JVD. No pulse deficits. Respiratory: Lungs have equal breath sounds bilaterally, clear to auscultation and percussion. No rales, rhonchi or wheezes noted. No increased work of breathing, no retractions or nasal flaring. Abdomen/GI: Soft, non-tender, with normal bowel sounds. No distension or tympany. No guarding or rebound. No evidence of tenderness throughout. Back: No spinal tenderness. No costovertebral tenderness. Full range of motion. MS/ Extremity: Pulses equal, no cyanosis. Neurovascular intact. Full, normal range of motion. Neuro: Awake and alert, GCS 15, oriented to person, place, time, and situation. Cranial nerves II-XII grossly intact. Motor strength 5/5 in all extremities. Sensory grossly intact. 12:23 Head/face: Noted is abrasion(s), that are mild, of the forehead, hematoma, that is mild, of the forehead. 12:23 Skin: Skin tear to the left lateral hand. Small abrasion to the right knee with mild amount of ecchymosis and swelling.. Vital Signs: 12:02 BP 166 / 75; Pulse 86; Resp 16; Temp 98.0; Pulse Ox 100% ; Weight 70.31 kg; Height 5 mb7 ft. 5 in. (165.10 cm); 12:10 BP 140 / 91; Pulse 86; Resp 15; Pulse Ox 100% ; Pain 4/10; eo2 13:00 BP 141 / 108; Pulse 93; Resp 15; Pulse Ox 99% ; jl7 14:26 BP 175 / 80; Pulse 106; Pulse Ox 99% on R/A; ap3 16:30 BP 170 / 67; Pulse 95; Resp 17; Pulse Ox 100% ; eo2 12:02 Body Mass Index 25.79 (70.31 kg, 165.10 cm) mb7 [place] Coma Score: 12:02 Eye Response: spontaneous(4). Verbal Response: oriented(5). Motor Response: obeys ww commands(6). Total: 15. 12:10 Eye Response: spontaneous(4). Verbal Response: oriented(5). Motor Response: obeys jl7 commands(6). Total: 15. 13:00 Eye Response: spontaneous(4). Verbal Response: oriented(5). Motor Response: obeys jl7 commands(6). Total: 15. 14:26 Eye Response: spontaneous(4). Verbal Response: oriented(5). Motor Response: obeys jl7 commands(6). Total: 15. 16:30 Eye Response: spontaneous(4). Verbal Response: oriented(5). Motor Response: obeys jl7 commands(6). Total: 15. Trauma Score (Adult): 12:02 Eye Response: spontaneous(1); Verbal Response: oriented(1); Motor Response: obeys ww commands(2); Systolic BP: > 89 mm Hg(4); Respiratory Rate: 10 to 29 per min(4); Ross Score: 15; Trauma Score: 12 MDM: 12:03 Patient medically screened. jr8 12:56 Data reviewed: vital signs, nurses notes, radiologic studies, CT scan. Data jr8 interpreted: Pulse oximetry: on room air is 100 %. Interpretation: normal. Counseling: I had a detailed discussion with the patient and/or guardian regarding: the historical points, exam findings, and any diagnostic results supporting the discharge/admit diagnosis, lab results, radiology results, the need to transfer to another facility, for higher level of care. 13:53 ED course: [facility] has accepted patient. Waiting on bed jr8 assignment as there has been a delay due to capacity there. Patient remains hemodynamically stable and without any focal deficits or other neurologic findings.. 02/23 12:56 Order name: CBC with Diff; Complete Time: 13:54 jr8 02/23 12:12 Order name: CT Head Brain wo Cont; Complete Time: 12:56 jr8 02/23 12:56 Order name: Basic Metabolic Panel; Complete Time: 13:54 jr8 02/23 12:56 Order name: Protime (+inr); Complete Time: 13:54 jr8 02/23 12:56 Order name: Ptt, Activated; Complete Time: 13:54 jr8 02/23 12:56 Order name: IV; Complete Time: 13:06 jr8 Administered Medications: No medications were administered Disposition Summary: 02/23/21 13:54 Transfer Ordered Transfer Location: [facility] jr8 Reason: Higher level of care jr8 Condition: Stable jr8 Problem: new jr8 Symptoms: are unchanged jr8 Accepting Physician: Dr. Hoyt(02/23/21 17:03) ap3 Diagnosis - Traumatic subdural hemorrhage jr8 Discharge Instructions: - Discharge Summary Sheet ap3 Forms: - Medication Reconciliation Form jr8 - SBAR form ap3 Addendum: 02/24/2021 18:49 Co-signature as Attending Physician, Angel Bustamante MD I agree with the assessment and c carranza plan of care. Signatures: Dispatcher [employer] EDAngel Chao MD MD cha Roszak, Josh, PA PA jr8 Shashi Garcia RN RN jl7 Milvia Avitia RN RN ap3 Fany Tran RN RN eo2 Corrections: (The following items were deleted from the chart) 02/23 17:03 13:54 Dr. Hoyt jr8 ap3
--- NOTE | 2021-02-23 13:55 | ER ---
Nurse's Notes [facility] Name: Darlene Thornton Age: 80 yrs Sex: Female : 1940 Arrival Date: 02/23/2021 Time: 11:47 Bed 20 Private MD: Diagnosis: Traumatic subdural hemorrhage Presentation: 02/23 12:02 Chief complaint: Patient states: Tripped over sons dog in the street and hit left ww forehead, left hand and left knee. Complaining of left shoulder blade pain. Denies any LOC. States she takes a blood thinner but does not recall the name. Care prior to arrival: Bleeding of injury controlled. Mechanism of Injury: Fall from standing position. Trauma event details: Injury occurred: at home. Injury occurred: February 23, 2021 Injury occurred at: 11:00. 12:02 Acuity: AISHWARYA 3 ww 12:02 Method Of Arrival: Ambulatory ww 12:10 Coronavirus screen: At this time, the client does not indicate any symptoms associated jl7 with coronavirus-19. Ebola Screen: No symptoms or risks identified at this time. Initial Sepsis Screen: Does the patient meet any 2 criteria? No. Patient's initial sepsis screen is negative. Does the patient have a suspected source of infection? No. Patient's initial sepsis screen is negative. Risk Assessment: Do you want to hurt yourself or someone else? Patient reports no desire to harm self or others. Onset of symptoms was February 23, 2021. Trauma Activation: Physician: ED Physician; Name: Robby; Notified At: ; Arrived At: Physician: General Surgeon; Name: ; Notified At: ; Arrived At: Physician: Radiology; Name: ; Notified At: ; Arrived At: Physician: Respiratory; Name: ; Notified At: ; Arrived At: Physician: Lab; Name: ; Notified At: ; Arrived At: Historical: - Allergies: 12:10 No Known Drug Allergies; eo2 - Home Meds: 12:10 Xarelto oral [Active]; eo2 15:24 Ampyra 10 mg oral Tb12 [Active]; amlodipine 10 mg tab [Active]; lyothyronine [Active]; jl7 carvedilol 25 mg oral tab [Active]; - PMHx: 12:10 Hypertension; Hypothyroidism; eo2 15:24 Atrial fibrillation; jl7 - Immunization history:: Client reports receiving the 2nd dose of the Covid vaccine. - Immunization history: Last tetanus immunization: unknown. - Social history:: Smoking status: unknown. Screenin:02 Abuse screen: Denies threats or abuse. Denies injuries from another. Tuberculosis ww screening: No symptoms or risk factors identified. 13:01 Nutritional screening: No deficits noted. Fall Risk Fall in past 12 months (25 points). jl7 IV access (20 points). Total [place] Fall Scale indicates High Risk Score (45 or more points). Fall prevention measures have been instituted. Side Rails Up X 2 Placed Close to Nursing Station Frequent Obs/Assessments Occuring As available patient and family educated on Fall Prevention Program and Strategies. Primary Survey: 12:02 NO uncontrolled hemorrhage observed. A: The patient is alert. Airway: patent. ww Breathing/Chest: Respiratory pattern: regular, Respiratory effort: unlabored. Circulation: Cardiac rhythm: sinus rhythm Pulses: palpable right radial artery and left radial artery. Disability Alert Verbal Stimuli Painful Stimuli. Exposure/Environment: There is no evidence of uncontrolled external bleeding. Obvious injury(ies) are noted at this time: abrasions to left forehead, left hand and left knee. 12:30 Reassessment Airway Airway Patent Breathing/Chest Respiratory pattern Regular jl7 Respiratory effort Spontaneous Unlabored Breath sounds Clear Chest inspection Symmetrical Circulation Heart tones Present Color [place] Temperature Warm Disability Alert. Assessment: 12:02 General: Appears comfortable, well groomed, well developed, Behavior is calm, ww cooperative, appropriate for age. Pain: Complains of pain in left knee. Neuro: Level of Consciousness is awake, alert, obeys commands, Oriented to person, place, time, situation, Appropriate for age Moves all extremities. Gait is steady, Speech is normal. EENT: No deficits noted. No signs and/or symptoms were reported regarding the EENT system. Cardiovascular: Capillary refill < 3 seconds. Respiratory: Airway is patent Respiratory effort is even, unlabored, Respiratory pattern is regular, symmetrical. GI: No deficits noted. No signs and/or symptoms were reported involving the gastrointestinal system. : No deficits noted. No signs and/or symptoms were reported regarding the genitourinary system. Derm: Skin left forehead laceration with bruising, left hand abrasion, left knee abrasion. Musculoskeletal: Circulation, motion, and sensation intact. Injury Description: Abrasion sustained to left hand and left leg. 13:01 Reassessment: Patient appears in no apparent distress at this time. No changes from jl7 previously documented assessment. Patient and/or family updated on plan of care and expected duration. Pain level reassessed. Patient is alert, oriented x 3, equal unlabored respirations, skin warm/dry/pink. 14:44 Reassessment: receiving nurse is unavailable for report. transfer center stated that ap3 the receiving nurse will call me back. Vital Signs: 12:02 BP 166 / 75; Pulse 86; Resp 16; Temp 98.0; Pulse Ox 100% ; Weight 70.31 kg; Height 5 mb7 ft. 5 in. (165.10 cm); 12:10 BP 140 / 91; Pulse 86; Resp 15; Pulse Ox 100% ; Pain 4/10; eo2 13:00 BP 141 / 108; Pulse 93; Resp 15; Pulse Ox 99% ; jl7 14:26 BP 175 / 80; Pulse 106; Pulse Ox 99% on R/A; ap3 16:30 BP 170 / 67; Pulse 95; Resp 17; Pulse Ox 100% ; eo2 12:02 Body Mass Index 25.79 (70.31 kg, 165.10 cm) mb7 [place] Coma Score: 12:02 Eye Response: spontaneous(4). Verbal Response: oriented(5). Motor Response: obeys ww commands(6). Total: 15. 12:10 Eye Response: spontaneous(4). Verbal Response: oriented(5). Motor Response: obeys jl7 commands(6). Total: 15. 13:00 Eye Response: spontaneous(4). Verbal Response: oriented(5). Motor Response: obeys jl7 commands(6). Total: 15. 14:26 Eye Response: spontaneous(4). Verbal Response: oriented(5). Motor Response: obeys jl7 commands(6). Total: 15. 16:30 Eye Response: spontaneous(4). Verbal Response: oriented(5). Motor Response: obeys jl7 commands(6). Total: 15. Trauma Score (Adult): 12:02 Eye Response: spontaneous(1); Verbal Response: oriented(1); Motor Response: obeys ww commands(2); Systolic BP: > 89 mm Hg(4); Respiratory Rate: 10 to 29 per min(4); [place] Score: 15; Trauma Score: 12 ED Course: 11:47 Patient arrived in ED. rg4 12:02 Steven Jon PA is PHCP. jr8 12:02 Angel Bustamante MD is Attending Physician. jr8 12:04 Triage completed. ww 12:08 Fany Tarn, RN is Primary Nurse. eo2 12:10 Arm band placed on right wrist. jl7 12:30 Patient has correct armband on for positive identification. Bed in low position. Call jl7 light in reach. Side rails up X2. 12:30 Patient maintains SpO2 saturation greater than 95% on room air. Thermoregulation: warm jl7 blanket given to patient. 12:39 CT Head Brain wo Cont In Process Unspecified. EDMS 13:01 monitoring manager on. Pulse ox on. NIBP on. Warm blanket given. jl7 13:10 Inserted saline lock: 20 gauge in right antecubital area, using aseptic technique. 4 Blood collected. 16:30 No provider procedures requiring assistance completed. Patient transferred, IV remains eo2 in place. Administered Medications: No medications were administered Intake: 16:30 PO: 0ml; IV: 0ml; Tubes: 0ml (); Total: 0ml. jl7 Output: 16:30 Urine: 0ml; Gastric: 0ml; Stool: 0; EBL: 0ml; Drainage: 0ml; Other: 0; Total: 0ml. jl7 Outcome: 13:54 ER care complete, transfer ordered by . jr8 16:30 Transferred by ground EMS to other acute care facility: [facility]. eo2 16:30 Condition: stable 16:30 Discharge instructions given to patient, family, Instructed on the need for transfer, Demonstrated understanding of instructions. 16:30 Patient's length of stay was not longer than 2 hours. jl7 17:03 Patient left the ED. ap3 Signatures: Dispatcher [employer] EDMS Steven Jon PA PA jr8 Tsering French rg4 Shashi Garcia RN RN jl7 Milvia Avitia RN RN ap3 [facility] Tia Jade 7 Latonya Hurst RN RN Fany Tran RN RN eo2 Corrections: (The following items were deleted from the chart) 15:18 13:16 BP 141 / 108; Pulse 93bpm; Resp 15bpm; Pulse Ox 99%; ap3 jl7
[2021-02-23 17:11] VITALS: TEMP 98
[2021-02-23 17:14] VITALS: O2SAT 99
[2021-02-23 17:15] VITALS: BP 175/80
== END 2021-02-23 17:03 | disposition short-term general hospital (02) ==
LOC: ER 11:44
DX: S06.5X0A Traumatic subdural hemorrhage without loss of consciousness, initial encounter (principal); W19.XXXA Unspecified fall, initial encounter; I10 Essential (primary) hypertension; E03.9 Hypothyroidism, unspecified; I48.91 Unspecified atrial fibrillation; Z79.01 Long term (current) use of anticoagulants
CPT/HCPCS: 36415; 70450; 80048; 85025; 85610; 85730; 99285

== ENCOUNTER 2021-04-27 07:05 | Day surgery (SDC) | payer OTHER, BC ==
[2021-04-27] MEDS ORDERED: Ringers Lactate 1,000 ML IV ONE (07:45)
[2021-04-27 07:49] LABS: Potassium 4.4 mmol/L (3.5-5.1)
[2021-04-27] MEDS ORDERED: propofoL 200 MG/20 ML VIAL IV ONE (09:10)
[2021-04-27] MEDS ORDERED: LIDOCAINE 1% MPF 30 ML VIAL ONE (09:10)
[2021-04-27] MEDS ORDERED: GLYCOPYRROLATE 0.2 MG/ML SYR ONE (09:10)
--- NOTE | 2021-04-27 09:45 | ENDO RPT ---
[address], [address] COLONOSCOPY PROCEDURE REPORT EXAM DATE: 04/27/2021 PATIENT NAME: Darlene Thornton MR #: [id number] BIRTHDATE: 1940 ATTENDING: Antoine Devlin DR STATUS: outpatient MONOTYPE KEYBOARD OPERATOR: Lelo Amaro RN and Nadia Vogt INDICATIONS: The patient is a 80 yr old Female here for a colonoscopy due to colon cancer screening PROCEDURE PERFORMED: Colonoscopy with biopsy - cold polypectomy MEDICATIONS: Per Anesthesia. ESTIMATED BLOOD LOSS: None CONSENT: The patient understands the risks and benefits of the procedure and understands that these risks include, but are not limited to: sedation, allergic reaction, infection, perforation and/or bleeding. Alternative means of evaluation and treatment include, among others: physical exam, x-rays, and/or surgical intervention. The patient elects to proceed with this endoscopic procedure. DESCRIPTION OF PROCEDURE: During intra-op preparation period all mechanical medical equipment was checked for proper function. Hand hygiene and appropriate measures for infection prevention was taken. Procedure, possible complications, alternatives including, but not limited to possibility of bleeding, perforation, tear, infection, sepsis, need for surgery, need for blood transfusion, were explained to the patient. After the risks, benefits and alternatives of the procedure were thoroughly explained, Informed consent was verified, confirmed and timeout was successfully executed by the treatment team. The patient was placed in the left lateral position. A digital rectal exam was performed and revealed internal hemorrhoids and A digital rectal exam was performed and revealed external hemorrhoids. After appropriate level of anesthesia, the scope was passed. The EC-[id number] ([id number]) endoscope was introduced through the anus and advanced to the cecum, which was identified by both the appendix and ileocecal valve. The quality of the prep was fair. The instrument was then slowly withdrawn as the colon was fully examined. Scope withdrawal time was 10 minutes. COLON FINDINGS: Small internal and external hemorrhoids were found. A smooth and polypoid shaped pedunculated polyp ranging between 3-5mm in size was found in the ascending colon. A polypectomy was performed with cold forceps. The resection was complete, the polyp tissue was completely retrieved and sent to histology. Moderate diverticulosis was noted in the sigmoid colon. No bleeding was noted from the diverticulosis. Retroflexed views revealed no abnormalities. The scope was then completely withdrawn from the patient and the procedure terminated. ADVERSE EVENTS: There were no complications. IMPRESSIONS: 1. Small internal and external hemorrhoids 2. Pedunculated polyp ranging between 3-5mm in size was found in the ascending colon; polypectomy was performed with cold forceps 3. Moderate diverticulosis was noted in the sigmoid colon RECOMMENDATIONS: 1. avoid NSAIDS 2. avoid NSAIDS for 2 weeks 3. await biopsy results 4. follow-up: office 2 week(s) 5. Monitor for any evidence of rectal bleeding. 6. yearly hemoquant 7. hemorrhoidal hygiene 8. increase dietary water 9. low fiber / diverticular diet RECALL: for Colonoscopy, pending biopsy results. Pending Biopsy Antoine Devlin DR eSigned: Antoine Devlin DR 04/27/2021 9:45 AM cc: CPT CODES: ICD9 CODES: PATIENT NAME: Alesiakartik Darleneadina Infante MR#: [id number]
[2021-04-27 10:26] VITALS: BP 119/85; TEMP 97.4; O2SAT 100
== END 2021-04-27 10:24 | disposition home or self-care (01) ==
LOC: OR 07:05
PROVIDERS: ATTEND Surgery
PROC: 0DBK8ZX Excision of Ascending Colon, Via Natural or Artificial Opening Endoscopic, Diagnostic (ICD-10-PCS; principal; 2021-04-27 09:00)
DX: D12.2 Benign neoplasm of ascending colon (principal); K64.8 Other hemorrhoids; K64.4 Residual hemorrhoidal skin tags; K57.30 Diverticulosis of large intestine without perforation or abscess without bleeding; Z20.822 Contact with and (suspected) exposure to COVID-19
CPT/HCPCS: 80048; 36415; 88305; 45380; U0003; J2704; J7120

== ENCOUNTER 2024-04-30 14:13 | Emergency (ER) | payer OTHER, BC ==
--- NOTE | 2024-04-30 15:32 | RAD REPORT ---
EXAM: Right lower extremity arterial ultrasound HISTORY: Right lower extremity arterial occlusion COMPARISON: None TECHNIQUE: Multiplanar grayscale and color Doppler images were obtained and a right lower extremity a rterial ultrasound. Spectral analysis of the Doppler waveforms were performed. FINDINGS: Right lower extremity: Calcified plaque present. Common femoral artery: Monophasic but with flow Superficial femoral artery: Dampened, monophasic waveform Popliteal artery: Dampened, monophasic waveform Posterior tibial artery: Dampened, monophasic waveform Dorsalis pedis artery: Monophasic flow IMPRESSION: Severely diminished monophasic flow in the right superficial femoral artery, popliteal artery, dorsal is pedis artery, and posterior tibial artery.
--- NOTE | 2024-04-30 16:02 | ER ---
Nurse's Notes [facility] Name: Darlene Thornton Age: 83 yrs Sex: Female : 1940 Arrival Date: 04/30/2024 Time: 14:13 Bed 26 Private MD: Diagnosis: Arterial Stent Occlusion Presentation: 04/30 14:44 Chief complaint: Patient states: she had a stent placed in her right leg last week in [address] [place] and is having pain that started this morning at 0800 in her right calf. patient currently rates her pain as a 9/10 on the pain scale. Coronavirus screen: At this time, the client does not indicate any symptoms associated with coronavirus-19. Ebola Screen: No symptoms or risks identified at this time. Initial Sepsis Screen: Does the patient meet any 2 criteria?. Risk Assessment: Do you want to hurt yourself or someone else? Patient reports no desire to harm self or others. Onset of symptoms was April 30, 2024. 14:44 Method Of Arrival: Ambulatory ap3 14:47 Initial Sepsis Screen: Does the patient meet any 2 criteria? No. Patient's initial ap3 sepsis screen is negative. Does the patient have a suspected source of infection? No. Patient's initial sepsis screen is negative. 14:47 Acuity: AISHWARYA 2 ap3 Triage Assessment: 14:47 General: Appears uncomfortable, Behavior is calm, cooperative, appropriate for age. ap3 Pain: Complains of pain in right calf Pain currently is 9 out of 10 on a pain scale. Pain began gradually, this morning. Neuro: Level of Consciousness is awake, alert, obeys commands, Oriented to person, place, time, situation, Appropriate for age. Cardiovascular: Patient's skin is warm and dry. Respiratory: Airway is patent Respiratory effort is even, unlabored, Respiratory pattern is regular, symmetrical. Historical: - Allergies: 14:46 No Known Allergies; ap3 - PMHx: 14:46 Atrial fibrillation; Hypertension; Hypothyroidism; ap3 - Immunization history:: Client reports having NOT received the Covid vaccine. Flu vaccine is not up to date. - Infectious Disease History:: Denies. - Social history:: Smoking status: Patient denies any tobacco usage or history of. Screenin:48 [facility] ED Fall Risk Assessment (Adult) History of falling in the last 3 months, ap3 including since admission Yes- single mechanical fall (1 pt) Confusion or Disorientation No (0 pts) Intoxicated or Sedated No (0 pts) Impaired Gait No (0 pts) Mobility Assist Device Used No (0 pt) Altered Elimination No (0 pt) Score/Fall Risk Level 0 - 2 = Low Risk Oriented to surroundings, Maintained a safe environment, Educated pt \T\ family on fall prevention, incl call for assistance when getting out of bed, Assessed \T\ reinforced patient's understanding of fall precautions, Hourly rounding (assess needs \T\ fall precautionary measures) done, Used ambulatory aids as needed (educated on \T\ assisted with). Abuse screen: Denies threats or abuse. Nutritional screening: No deficits noted. Tuberculosis screening: No symptoms or risk factors identified. Assessment: 17:29 General: Appears in no apparent distress. uncomfortable, Behavior is calm, cooperative, jb4 appropriate for age. Pain: Complains of pain in right leg Pain does not radiate. Pain currently is 9 out of 10 on a pain scale. Neuro: Level of Consciousness is awake, alert, obeys commands, Oriented to person, place, time, situation. Cardiovascular: Patient's skin is warm and dry. Pulses are 1+ in right dorsalis pedis artery are 3+ in left dorsalis pedis artery Rhythm is atrial fibrillation. Respiratory: Airway is patent Respiratory effort is even, unlabored, Respiratory pattern is regular, symmetrical. Derm: Skin is intact, Skin is pink, warm \T\ dry. Musculoskeletal: Circulation, motion, and sensation intact. Range of motion: intact in all extremities. Vital Signs: 14:47 BP 98 / 58; Pulse 81; Resp 18; Temp 97.9; Pulse Ox 100% ; Weight 55.79 kg; Height 5 ft. ap3 5 in. ; Pain 9/10; 16:51 Weight 57.8 kg (M); jb4 17:29 BP 131 / 72; Pulse 63; Resp 16; Pulse Ox 100% on R/A; jb4 14:47 Body Mass Index 20.47 (57.80 kg, 165.1 cm) ap3 14:47 Pain Scale: Adult ap3 ED Course: 14:20 Patient arrived in ED. as 14:23 Nitin Larson MD is Attending Physician. ec2 14:47 Triage completed. ap3 14:48 Arm band placed on right wrist. ap3 15:08 Lower Extremity Artery Uni Ltd US In Process Unspecified. EDMS 16:20 Inserted saline lock: 22 gauge in left antecubital area, using aseptic technique. Blood ty collected. Flushed with 10 mL NS. 16:22 initiated transfer to [facility]. bd 17:29 Good Diaz, RN is Primary Nurse. jb4 17:29 Patient has correct armband on for positive identification. Placed in gown. Bed in low jb4 position. Call light in reach. Side rails up X 1. Provided Education on: plan of care. Client placed on continuous cardiac and pulse oximetry monitoring. NIBP monitoring applied. toll test worker on. Pulse ox on. 17:29 No provider procedures requiring assistance completed. Patient transferred, IV remains jb4 in place. Administered Medications: 17:09 Drug: Heparin (DVT/PE Drip) 18 units/kg/hr - ([place] [address] units, D5W IV 500 ml) IV jb4 at calculated rate Per protocol; Max initial rate 1800 units/hr {Co-Signature: aa5 (Aidee Brothers RN).} Route: IV; Rate: calculated rate; Site: left antecubital; 17:42 Follow up: Response: No adverse reaction; IV Status: Infusion continued upon transfer jb4 Medication: 17:29 VIS not applicable for this client. jb4 Outcome: 16:02 ER care complete, transfer ordered by MD. ec2 16:55 ER care complete, transfer ordered by MD. ec2 17:29 Transferred by helicopter to [facility], Transfer form completed. jb4 X-rays sent w/ patient. 17:43 Patient left the ED. jb4 Signatures: Dispatcher [employer] EDMS Julita Yang Amelia as Good Diaz, RN RN jb4 Milvia Avitia RN RN ap3 Nitin Larson MD MD ec2 Charles Mccabe Audri RN aa5
--- NOTE | 2024-04-30 16:03 | EDPHYS ---
Physician Documentation [facility] Name: Darlene Thornton Age: 83 yrs Sex: Female : 1940 Arrival Date: 04/30/2024 Time: 14:13 Bed 26 Private MD: ED Physician Nitin Larson HPI: 04/30 14:54 This 83 yrs old Female presents to ER via Ambulatory with complaints of Right ec2 leg pain. 14:54 Patient arrives today for evaluation of right lower extremity pain. Patient had a ec2 recent stent placed in the right lower extremity secondary to arterial occlusion, has been on Plavix without issues. Patient complained of right lower extremity pain.. Historical: - Allergies: 14:46 No Known Allergies; ap3 - PMHx: 14:46 Atrial fibrillation; Hypertension; Hypothyroidism; ap3 - Immunization history:: Client reports having NOT received the Covid vaccine. Flu vaccine is not up to date. - Infectious Disease History:: Denies. - Social history:: Smoking status: Patient denies any tobacco usage or history of. ROS: 14:55 Constitutional: as per hpi ec2 Exam: 14:55 Constitutional: GEN: NAD Head: atraumatic Eyes: EOMI Ears: External ears are ec2 normal. CV: regular rate LUNGS: no respiratory distress ABD: non-distended SKIN: Right lower extremity is warm, no discoloration appreciated. MSK: no evidence of trauma Vital Signs: 14:47 BP 98 / 58; Pulse 81; Resp 18; Temp 97.9; Pulse Ox 100% ; Weight 55.79 kg; Height 5 ft. ap3 5 in. ; Pain 9/10; 16:51 Weight 57.8 kg (M); jb4 17:29 BP 131 / 72; Pulse 63; Resp 16; Pulse Ox 100% on R/A; jb4 14:47 Body Mass Index 20.47 (57.80 kg, 165.1 cm) ap3 14:47 Pain Scale: Adult ap3 MDM: 14:23 Medical Screening Exam initiated ec2 14:55 Data reviewed: vital signs, nurses notes. ED course: Patient arrives today for ec2 evaluation of right lower extremity pain. Examination with reassuring skin findings as above. Will obtain arterial ultrasound. Will obtain lab work as well. DDx includes postoperative pain, stent occlusion. 16:53 ED course: Initially patient wanted to leave AGAINST MEDICAL ADVICE and self transfer ec2 to [facility], patient is now agreeable to transfer. 17:24 ED course: EKG independently reviewed and interpreted by me, shows atrial flutter with ec2 variable conduction, rate of 74, intervals are nonactionable.. 04/30 14:49 Order name: Basic Metabolic Panel; Complete Time: 16:49 ec2 04/30 14:49 Order name: CBC with Diff; Complete Time: 16:40 ec2 04/30 14:49 Order name: PT-INR; Complete Time: 16:49 ec2 04/30 14:49 Order name: Troponin HS; Complete Time: 16:49 ec2 04/30 14:49 Order name: Ptt, Activated; Complete Time: 16:49 ec2 04/30 14:28 Order name: Lower Extremity Artery Uni Ltd US; Complete Time: 15:39 ec2 04/30 14:49 Order name: EKG; Complete Time: 14:49 ec2 04/30 14:49 Order name: Cardiac monitoring; Complete Time: 17:27 ec2 04/30 14:49 Order name: EKG - Nurse/Tech; Complete Time: 17:27 ec2 04/30 14:49 Order name: IV Saline Lock; Complete Time: 16:34 ec2 04/30 14:49 Order name: Labs collected and sent; Complete Time: 16:34 ec2 04/30 14:49 Order name: O2 Per Protocol; Complete Time: 16:34 ec2 04/30 14:49 Order name: O2 Sat Monitoring; Complete Time: 16:34 ec2 Administered Medications: 17:09 Drug: Heparin (DVT/PE Drip) 18 units/kg/[place] - ([place] [address] units, D5W IV 500 ml) IV jb4 at calculated rate Per protocol; Max initial rate 1800 units/hr {Co-Signature: aa5 (Aidee Brothers RN).} Route: IV; Rate: calculated rate; Site: left antecubital; 17:42 Follow up: Response: No adverse reaction; IV Status: Infusion continued upon transfer jb4 Disposition Summary: 04/30/24 16:55 Transfer Ordered Notes: Transfer Location: [facility](04/30/24 16:55) ec2 Reason: Higher level of care(04/30/24 16:55) ec2 Condition: Serious(04/30/24 16:55) ec2 Problem: new(04/30/24 16:55) ec2 Symptoms: are unchanged(04/30/24 16:55) ec2 Accepting Physician: Dr. Wood(04/30/24 17:43) jb4 Diagnosis - Arterial Stent Occlusion ec2 Forms: - Medication Reconciliation Form ec2 - SBAR form ec2 Critical care time excluding procedures: 16:57 Critical care time: Bedside Care: 30 minutes, Consultation: 15 minutes. Total time: 45 ec2 minutes Signatures: Dispatcher [employer] EDGood Steel RN RN jb4 Milvia Avitia RN RN ap3 Nitin Larson MD MD ec2 Aidee Brothers RN aa5 Corrections: (The following items were deleted from the chart) 16:02 16:02 Dr. Hammond ec2 ec2 16:02 16:02 have improved ec2 ec2 16:43 16:02 [facility] ec2 ec2 16:43 16:02 Higher level of care ec2 ec2 16:43 16:02 Stable ec2 ec2 16:43 16:02 new ec2 ec2 16:43 16:02 Arterial Stent Occlusion ec2 ec2 16:43 16:02 Dr. Hammond ec2 ec2 16:43 16:02 are unchanged ec2 ec2 16:54 16:43 Home ec2 ec2 16:54 16:43 new ec2 ec2 16:54 16:43 are unchanged ec2 ec2 16:54 16:43 Serious ec2 ec2 16:54 16:43 Arterial Stent Occlusion ec2 ec2 17:43 16:55 Dr. Wood ec2 jb4
[2024-04-30 16:31] LABS: Absolute Basophils 0.1 K/uL (0-0.5); Absolute Eosinophils 0.4 K/uL (0-0.5); Absolute Lymphocytes (CBC) 1.9 K/uL (0.7-4.9); Absolute Monocytes 1.4 K/uL (0.1-1.3); Absolute Neutrophil 8.1 K/uL (1.8-8.0); Basophils % 0.7 % (0-1.3); Eosinophils % 3.2 % (0-4.4); Hematocrit 32.6 % (36.0-45.0); Hemoglobin 10.8 g/dL (12.0-15.0); Lymphocytes % 16.4 % (15.3-44.8); MCHC 33.2 g/dL (32.0-36.0); MCV 93.3 fL (80-100); MPV 7.7 fL (7.6-11.3); Monocytes % 11.5 % (3.3-12.3); Neutrophils % 68.2 % (41.7-73.7); Platelets 237 thou/uL (152-406); Red Cell Distribution Width 13.6 % (12.1-15.2)
[2024-04-30 16:46] LABS: PT Prothrombin Time 11.8 SECONDS (10.0-13.0); PTT, Activated Partial Thromb 28.2 SECONDS (24.3-36.9); Protime INR 1.04
[2024-04-30 16:48] LABS: Anion Gap 9.3 mEq/L (5.0-15.0); Potassium 4.3 mEq/L (3.5-5.1); Troponin High Sensitivity 11.4 pg/mL (<58.9)
[2024-04-30] MEDS ORDERED: HEPARIN/D5W 25,000 UNIT/500 ML BAG IV ONE (17:00)
[2024-04-30] MEDS ORDERED: HEPARIN 5000 UNIT/ML 1 ML VIAL ONE (17:00)
[2024-04-30 18:11] VITALS: O2SAT 100
[2024-04-30 18:13] VITALS: BP 98/58; TEMP 97.9
== END 2024-04-30 17:43 | disposition short-term general hospital (02) ==
LOC: ER 14:13
DX: T82.856A Stenosis of peripheral vascular stent, initial encounter (principal); I48.91 Unspecified atrial fibrillation; I10 Essential (primary) hypertension; Z79.01 Long term (current) use of anticoagulants
CPT/HCPCS: 36415; 80048; 84484; 85025; 85610; 85730; 93005; 93926; 96365; 99285; J1644

== ENCOUNTER 2024-11-27 15:00 | Emergency (ER) | payer OTHER, BC ==
[2024-11-27 16:01] LABS: Absolute Lymphocytes (CBC) 1.2 K/uL (0.7-4.9); Hematocrit 39.5 % (36.0-45.0); Hemoglobin 13.4 g/dL (12.0-15.0); MCH 30.8 pg (27.0-35.0); MCHC 34.0 g/dL (32.0-36.0); MCV 90.6 fL (80-100); MPV 7.4 fL (7.6-11.3); Nucleated RBC Absolute Count 0.0 (0-0); Nucleated Red Blood Cells % 0.1 % (0-0); RBC Red Blood Cell Count 4.36 M/uL (3.86-4.86); White Blood Count 8.90 thou/uL (4.3-10.9)
[2024-11-27 16:18] LABS: Anion Gap 7.3 mEq/L (5.0-15.0); BUN Blood Urea Nitrogen 25.0 mg/dL (7-18); Glucose Level 135.0 mg/dL (74-106); Potassium 4.3 mEq/L (3.5-5.1)
--- NOTE | 2024-11-27 17:32 | RAD REPORT ---
EXAMINATION: Head Brain Wo Cont CLINICAL INDICATION: Female, 84 years old.DIZZINESS TECHNIQUE: Axial CT images from the skull base to the vertex without intravenous contrast. Coronal an d sagittal reformatted images were created from the data set. One or more of the following dose reduction techniques were used: Automated exposure control, adjustment of the mA and/or kV according to patient size, and/or iterative reconstruction. Unless otherwise specified, incidental findings do not require dedicated imaging follow-up. [id number]. COMPARISON: 11/20/2024 FINDINGS: INTRACRANIAL: No acute intracranial hemorrhage. No acute large vascular territory infarct. No hydroce phalus. No mass effect or midline shift. Moderate chronic small vessel ischemic changes.Mild cerebral atrophy. VASCULATURE: No visualized abnormalities in the arteries or dural venous sinuses. SCALP/SKULL: No calvarial fracture identified. No acute soft tissue abnormality. SINUSES: The visualized paranasal sinuses are mostly clear. No significant mastoid fluid. IMPRESSION: No acute intracranial abnormality. No significant change from prior.
[2024-11-27 18:46] LABS: Sqamous Epithelial None Seen /HPF (None Seen); Urine Culture Reflex Order REFLEXED; Urine Microscopic Reflex YN ORDER UMIC
[2024-11-27] MEDS ORDERED: CEFTRIAXONE 1000 MG/VIAL ONE (18:58)
--- NOTE | 2024-11-27 19:09 | ER ---
Nurse's Notes [facility] Name: Darlene Thornton Age: 84 yrs Sex: Female : 1940 Arrival Date: 11/27/2024 Time: 15:00 Bed 19 Private MD: Diagnosis: UTI/ Urinary tract infection, site not specified Presentation: 11/27 15:12 Chief complaint: Patient states: Near syncopal episode while at home. Coronavirus ss screen: Client denies travel out of the [place] in the last 14 days. Ebola Screen: Patient denies exposure to infectious person. Patient denies travel to an Ebola-affected area in the 21 days before illness onset. Initial Sepsis Screen: Does the patient meet any 2 criteria? No. Patient's initial sepsis screen is negative. Does the patient have a suspected source of infection? No. Patient's initial sepsis screen is negative. Risk Assessment: Do you want to hurt yourself or someone else? Patient reports no desire to harm self or others. Onset of symptoms is unknown. Care prior to arrival: Medication(s) given: NS 0.9% 150 mL IV IV initiated. 20 GA, in the left antecubital area, Glucose check: 130. 15:12 Method Of Arrival: EMS: [facility] ss 15:12 Acuity: AISHWARYA 3 ss Historical: - Allergies: 19:18 No Known Allergies; kj2 - PMHx: 15:11 Atrial fibrillation; Hypertension; Hypothyroidism; ss - Immunization history:: Adult Immunizations unknown. - Infectious Disease History:: Denies. - Social history:: Smoking status: unknown. Screenin:30 [facility] ED Fall Risk Assessment (Adult) History of falling in the last 3 months, kj2 including since admission No falls in past 3 months (0 pts) Confusion or Disorientation No (0 pts) Intoxicated or Sedated No (0 pts) Impaired Gait Yes (1 pt) Mobility Assist Device Used Yes (1 pt) Altered Elimination No (0 pt) Score/Fall Risk Level 0 - 2 = Low Risk Maintained a safe environment, Hourly rounding (assess needs \T\ fall precautionary measures) done. Abuse screen: Denies threats or abuse. Denies injuries from another. Nutritional screening: No deficits noted. Tuberculosis screening: No symptoms or risk factors identified. Assessment: 15:15 Pain: Complains of pain in right arm. kj2 15:30 General: Appears in no apparent distress. Behavior is cooperative. Neuro: Level of kj2 Consciousness is awake, alert, Oriented to person, place, situation. Cardiovascular: Patient's skin is warm and dry. Respiratory: Airway is patent Respiratory effort is even, unlabored. GI: No signs and/or symptoms were reported involving the gastrointestinal system. : No signs and/or symptoms were reported regarding the genitourinary system. 16:30 Reassessment: Patient appears in no apparent distress at this time. Patient and/or kj2 family updated on plan of care and expected duration. Pain level reassessed. 17:27 Reassessment: Patient appears in no apparent distress at this time. Patient and/or kj2 family updated on plan of care and expected duration. Pain level reassessed. 18:25 Reassessment: Patient appears in no apparent distress at this time. Patient and/or kj2 family updated on plan of care and expected duration. Pain level reassessed. purewick applied. 19:18 Reassessment: Patient appears in no apparent distress at this time. Patient and/or kj2 family updated on plan of care and expected duration. Pain level reassessed. Patient is alert, oriented x 3, equal unlabored respirations, skin warm/dry/pink. 19:18 Reassessment: care to skin tear performed, cleansed with normal saline, pat dry, kj2 covered with non stick guaze, wrapped with kerlix. 19:21 Reassessment:. kj2 Vital Signs: 15:11 BP 143 / 86; Pulse 55; Resp 14; Pulse Ox 100% on R/A; ss 16:30 BP 139 / 62; Pulse 56; Resp 18; kj2 17:27 BP 133 / 64; Pulse 58; Resp 20; Pulse Ox 100% on R/A; kj2 18:30 BP 142 / 82; Pulse 62; Resp 20; Pulse Ox 100% on R/A; kj2 19:22 BP 124 / 68; Pulse 60; Resp 18; Temp 97.9; Pulse Ox 99% on R/A; kj2 ED Course: 15:10 Patient arrived in ED. ss 15:11 Arm band placed on left wrist. ss 15:12 Roman Davis FNP-C is PHCP. dr5 15:12 Angel Bustamante MD is Attending Physician. dr5 15:13 Triage completed. ss 15:30 Patient has correct armband on for positive identification. Bed in low position. Call kj2 light in reach. Adult w/ patient. Provided Education on: call light. 16:17 Vandana Miranda, RN is Primary Nurse. kj2 16:21 No provider procedures requiring assistance completed. Maintain EMS IV. Dressing kj2 intact. Good blood return noted. Site clean \T\ dry. Gauge \T\ site: 20g left AC. Flushed with 10 mL NS. 17:23 CT Head Brain wo Cont In Process Unspecified. EDMS 19:21 IV discontinued, intact, bleeding controlled, No redness/swelling at site. Pressure kj2 dressing applied. Administered Medications: 16:05 Drug: NS 0.9% IV 1000 ml IV at 1000 ml once; to be given as a bolus over 60 minutes ll1 Route: IV; Rate: 1000 ml; Site: left antecubital; 19:18 Follow up: IV Status: Completed infusion; IV Intake: 1000ml kj2 19:10 Drug: Rocephin IV 1 grams IV at per protocol once; Given slow IV push per pharmacy kj2 instructions Route: IV; Rate: per protocol; Site: right antecubital; 19:17 Follow up: IV Status: Completed infusion; IV Intake: 10ml kj2 Medication: 19:18 VIS not applicable for this client. kj2 Intake: 19:17 IV: 10ml; Total: 10ml. kj2 19:18 IV: 1000ml; Total: 1010ml. kj2 Outcome: 19:08 Discharge ordered by . dr5 19:21 Discharged to home with family, kj2 19:21 Condition: stable 19:21 Discharge instructions given to patient, family, Instructed on discharge instructions, follow up and referral plans. Demonstrated understanding of 19:45 Patient left the ED. kj2 Addendum: 12/02/2024 09:09 Addendum: Culture Results: Positive urine culture. No further action required. Other: l l1 no urinary symptoms. Signatures: Dispatcher [employer] EDMS Tracy Skinner RN RN ss Lewis, Lynsay, RN RN ll1 Vandana Miranda RN RN kj2 Roman Davis, SPICE BLENDER-C [facility]
--- NOTE | 2024-11-27 19:09 | EDPHYS ---
Physician Documentation [facility] Name: Darlene Thornton Age: 84 yrs Sex: Female : 1940 Arrival Date: 11/27/2024 Time: 15:00 Bed 19 Private MD: ED Physician Angel Bustamante HPI: 11/27 16:54 This 84 yrs old Female presents to ER via EMS with complaints of Near Syncope.dr5 16:54 The patient has experienced near-syncope, almost passed out, felt faint. Onset: The dr5 symptoms/episode began/occurred acutely. Patient is an 84-year-old female with history of A-fib, hypertension, hypothyroidism coming in with near syncope that occurred at home today. Sister at bedside states that this has happened in the past when she tries to stand up. Patient was recently hospitalized for syncope. Patient has appoint with Dr. De Los Santos and Dr. Garrison on , November 29, 2024. Patient denies falling or hitting her head. Patient currently on Xarelto. Upon ER initial assessment, patient reports that she is feeling much better and denies headache, left or right sided weakness.. Historical: - Allergies: 19:18 No Known Allergies; kj2 - PMHx: 15:11 Atrial fibrillation; Hypertension; Hypothyroidism; ss - Immunization history:: Adult Immunizations unknown. - Infectious Disease History:: Denies. - Social history:: Smoking status: unknown. ROS: 16:54 Constitutional: as per hpi dr5 Exam: 16:54 Constitutional: This is a well developed, well nourished patient who is awake, alert, dr5 and in no acute distress. Head/Face: Normocephalic, atraumatic. Eyes: Pupils equal round and reactive to light, extra-ocular motions intact. Lids and lashes normal. Conjunctiva and sclera are non-icteric and not injected. Cornea within normal limits. Periorbital areas with no swelling, redness, or edema. Neck: Trachea midline, no thyromegaly or masses palpated, and no cervical lymphadenopathy. Supple, full range of motion without nuchal rigidity, or vertebral point tenderness. No Meningismus. Chest/axilla: Normal chest wall appearance and motion. Nontender with no deformity. No lesions are appreciated. Cardiovascular: Regular rate and rhythm with a normal S1 and S2. Normal PMI, no JVD. No pulse deficits. Respiratory: Lungs have equal breath sounds bilaterally, clear to auscultation. No rales, rhonchi or wheezes noted. No increased work of breathing, no retractions or nasal flaring. Back: No spinal tenderness. No costovertebral tenderness. Full range of motion. MS/ Extremity: Pulses equal, no cyanosis. Neurovascular intact. Full, normal range of motion. Neuro: Awake and alert, GCS 15, oriented to person, place, time, and situation. Cranial nerves II-XII grossly intact. Motor strength 5/5 in all extremities. Sensory grossly intact. Cerebellar exam normal. Normal gait. Vital Signs: 15:11 BP 143 / 86; Pulse 55; Resp 14; Pulse Ox 100% on R/A; ss 16:30 BP 139 / 62; Pulse 56; Resp 18; kj2 17:27 BP 133 / 64; Pulse 58; Resp 20; Pulse Ox 100% on R/A; kj2 18:30 BP 142 / 82; Pulse 62; Resp 20; Pulse Ox 100% on R/A; kj2 19:22 BP 124 / 68; Pulse 60; Resp 18; Temp 97.9; Pulse Ox 99% on R/A; kj2 Procedures: 15:41 Peripheral line: by aseptic technique a peripheral line was placed in the right dr5 antecubital vein, 20g R AC. MDM: 15:14 Medical Screening Exam initiated dr5 20:51 Differential Diagnosis: Intracranial hemorrhage, brain mass, anemia, acute kidney dr5 injury, urinary tract infection. Data reviewed: vital signs, nurses notes, old medical records, Reviewed medical records from previous admission. Patient's labs have improved since. lab test result(s), CBC, white blood cell count, hemoglobin, hematocrit, platelets, electrolytes, sodium, potassium, chloride, serum bicarbonate, BUN, creatinine, serum glucose, urinalysis, bacteruria, radiologic studies, CT scan. Consideration of Admission/Observation Escalation of care including admission/observation considered. Escalation considered patient found to have abnormality on CT scan.. Management of patient was discussed with the following: Primary Care Provider: Discussed with Dr. De Los Santos. Will have patient follow-up on with her scheduled appointment. Patient also has appointment on with Dr. Garrison with cardiology.. I considered the following discharge prescriptions or medication management in the emergency department I discussed and recommended Over The Counter medications, Medications were administered in the Emergency Department. See MAR. Independent interpretation of the following test(s) in the Emergency Department CT Scan: My interpretation is Independent interpretation of CT scan does not reveal obvious brain bleed.. Historians other than the Patient: Daughter/Son: Son and daughter at bedside. Upon arrival to room, patient's son was in room and was heavily intoxicated.. Care significantly affected by the following chronic conditions: A-fib, hypertension, hypothyroidism. Care significantly affected by the following Social Determinants of Health: Poor access to healthcare and/or lack of insurance, Poor access to transportation, Problems related to employment. Counseling: I had a detailed discussion with the patient and/or guardian regarding the historical points, exam findings, and any diagnostic results supporting the discharge/admit diagnosis, the presence of at least one elevated blood pressure reading (>120/80) during this emergency department visit, lab results, radiology results, the need for outpatient follow up, for definitive care, a family practitioner, to return to the emergency department if symptoms worsen or persist or if there are any questions or concerns that arise at home. Medication response: Normal saline. Response to treatment: the patient's symptoms have resolved after treatment, the patient's condition has returned to base line, the patient is now symptom free. Special discussion: I discussed with the patient/guardian in detail that at this point there is no indication for admission to the hospital. It is understood, however, that if the symptoms persist or worsen the patient needs to return immediately for re-evaluation. Based on the history and exam findings, there is no indication for further emergent testing or inpatient evaluation. I discussed with the patient/guardian the need to see the primary care provider for further evaluation of the symptoms. ED course: Patient reports no symptoms and feeling much better. Rocephin given for urinary tract infection. Will cover patient with Keflex. Discussed discharge with patient and her daughter and both agreed to follow-up Dr. De Los Santos. I printed out all labs and scans for them to take. All questions were answered. Strict ER precautions given. Patient's vital signs are stable on discharge.. 11/27 15:17 Order name: CBC with Diff; Complete Time: 16:04 dr5 11/27 15:17 Order name: BMP; Complete Time: 16:21 dr5 11/27 15:17 Order name: UA Rfx Federico Cult if indicated; Complete Time: 18:52 dr5 11/27 18:51 Order name: Urine Culture; Complete Time: 08:12 EDFL 11/27 15:53 Order name: CT Head Brain wo Cont; Complete Time: 17:34 dr5 Administered Medications: 16:05 Drug: NS 0.9% IV 1000 ml IV at 1000 ml once; to be given as a bolus over 60 minutes ll1 Route: IV; Rate: 1000 ml; Site: left antecubital; 19:18 Follow up: IV Status: Completed infusion; IV Intake: 1000ml kj2 19:10 Drug: Rocephin IV 1 grams IV at per protocol once; Given slow IV push per pharmacy kj2 instructions Route: IV; Rate: per protocol; Site: right antecubital; 19:17 Follow up: IV Status: Completed infusion; IV Intake: 10ml kj2 Disposition Summary: 11/27/24 19:08 Discharge Ordered Notes: Location: Home dr5 Condition: Stable dr5 Diagnosis - UTI/ Urinary tract infection, site not specified dr5 Followup: dr5 - With: Emergency Department - When: As needed - Reason: Worsening of condition Followup: dr5 - With: Private Physician - When: 1 - 2 days - Reason: Recheck today's complaints, Continuance of care, Re-evaluation by your physician Discharge Instructions: - Discharge Summary Sheet dr5 - Near-Syncope dr5 - Orthostatic Hypotension dr5 - Urinary Tract Infection, Adult, [id number] dr5 Forms: - Medication Reconciliation Form dr5 - Antibiotic Education dr5 - Patient Portal Instructions dr5 - Leadership Thank You Letter dr5 Prescriptions: - Cephalexin 500 mg Oral Capsule - take 1 capsule ORAL route every 12 hours for 10 days; 20 capsule; Refills: 0, dr5 Product Selection Permitted Signatures: Dispatcher [employer] [facility] Tracy Skinner RN RN ss Anika Maynard RN RN ll1 Vandana Miranda, MEKHI RN kj2 Roman Davis FNP-Clinton FERRERA-Cdr5
[2024-11-27 20:33] VITALS: BP 124/68; TEMP 97.9; O2SAT 99
== END 2024-11-27 19:45 | disposition home or self-care (01) ==
LOC: ER 15:00
DX: N39.0 Urinary tract infection, site not specified (principal); Z79.01 Long term (current) use of anticoagulants
CPT/HCPCS: 96361; 87088; 85025; 81001; 87086; 80048; 36415; 87077; 87186; 70450; 96374; 99284; J0696